=== PATIENT | female | born 1965 | race Caucasian/White ===

== ENCOUNTER → 2017-05-04 | Outpatient (CLI) | payer OTHER ==
--- NOTE | 2017-05-05 13:25 | WOMENS IMAGING REPORT ---
EXAM DESCRIPTION: 3D DX MAMMO BILAT; U/S BREAST UNILAT LIMITED COMPLETED DATE/TIME: 05/04/2017 11:54 am; 05/04/2017 1:38 pm REASON FOR STUDY: RT BREAST LUMP; N63; LUMP;N63 N63 UNSPECIFIED LUMP IN BREAST COMPARISON: Multiple mammograms since 2010 Left breast ultrasound 08/17/2016 TECHNIQUE: Standard craniocaudal, 90 degree mediolateral views of each breast recorded using digital acquisition and breast tomosynthesis. Bilateral breast ultrasound was also performed. LIMITATIONS: None. FINDINGS: RIGHT BREAST MASSES: Low-density well-circumscribed 3 mm nodule right breast 12 o'clock position 6 cm from the nip ple. This was subsequently shown to be a small breast parenchymal cyst. CALCIFICATIONS: No new or suspicious calcifications. ARCHITECTURAL DISTORTION: None. DEVELOPING DENSITY: None. ASYMMETRY: None noted. OTHER: No other significant findings. LEFT BREAST MASSES: No suspicious masses. CALCIFICATIONS: No new or suspicious calcifications. ARCHITECTURAL DISTORTION: None. DEVELOPING DENSITY: None. ASYMMETRY: None noted. OTHER: No other significant finding. Read with the assistance of CAD: .[facility] - R2 Cenova Version 1.3 .[facility] Imaging - R2 Cenova Version 1.3 .[facility] - R2 Cenova Version 2.4 .[facility] - R2 Cenova Version 2.4 .[facility] - R2 Senior Escrow Officer Version 9.2 Right breast ultrasound: Right breast ultrasound was performed. At the 12 o'clock position right breast, 6 cm from the nipple a simple cyst is present 3 mm in diameter. This requires no further followup. Patient indicates a palpable abnormality in the far lateral right breast/right lateral chest wall. U ltrasound of this area demonstrates a 3 x 1 cm well-circumscribed fatty nodule likely a lipoma. This similar compared to ultrasound 08/17/2016. IMPRESSION: No mammograms/tomosynthesis or ultrasound evidence for malignancy right breast. No mammographic/tomosynthesis evidence of malignancy left breast. BREAST DENSITY: a. The breasts are almost entirely fatty. BIRAD: 2 Benign findings. RECOMMENDATION: RECOMMENDED FOLLOW UP: Please continue yearly bilateral tomosynthesis screening in A ugust 2018. SPECIFIC INTERVENTION/IMAGING/CONSULTATION RECOMMENDED:No additional intervention/ imaging/consultati on needed at this time. COMMUNICATION:Patient notified by letter COMMENT: The patient has been notified of the results by letter per MQSA requirements. Additional no tification policies are in place for contacting patient with suspicious or incomplete findings. Quality ID #[id number]: The [employer] recommends an annual screening mammogram for women aged 40 years or over. This facility utilizes a reminder system to ensure that all patients receive reminder letters, and/or direct phone calls for appointments. This includes reminders for routine scr eening mammograms, diagnostic mammograms, or other Breast Imaging Interventions when appropriate. Th is patient will be placed in the appropriate reminder system. The [employer] (ACR) has developed recommendations for screening MRI of the breast s in certain patient populations, to be used in conjunction with mammography. Breast MRI surveillanc e may be appropriate for women with more than 20% lifetime risk of developing breast cancer as deter mined by genetic testing, significant family history of the disease, or history of mantle radiation f or Hodgkins Disease. ACR Practice Guidelines 2008. DBT Technology DBT is a type of tomographic mammography. With conventional mammography, overlapping breast tissue ma y make lesions difficult to detect, even with good compression. DBT uses an x-ray tube that rotates a round the breast, taking images at different angles. These images are then combined to create thin sl ices of the breast that the radiologist can view as a 3D reconstruction. The [employer] unit can perform full-field digital mammograms (2D imaging); or DBT (3D imaging); or both, in a combination mode that quickly performs both the mammogram and the tomosynthesis scan while the breast is still compressed. PQRS 6045F: Fluoroscopic imaging is not utilized for breast tomosynthesis. TECHNICAL DOCUMENTATION: FINDING NUMBER: (1) ASSESSMENT: (1) JOB ID: [id number] [employer]- All Rights Reserved
--- NOTE | 2017-05-05 13:25 | WOMENS IMAGING REPORT ---
EXAM DESCRIPTION: 3D DX MAMMO BILAT; U/S BREAST UNILAT LIMITED COMPLETED DATE/TIME: 05/04/2017 11:54 am; 05/04/2017 1:38 pm REASON FOR STUDY: RT BREAST LUMP; N63; LUMP;N63 N63 UNSPECIFIED LUMP IN BREAST COMPARISON: Multiple mammograms since 2010 Left breast ultrasound 08/17/2016 TECHNIQUE: Standard craniocaudal, 90 degree mediolateral views of each breast recorded using digital acquisition and breast tomosynthesis. Bilateral breast ultrasound was also performed. LIMITATIONS: None. FINDINGS: RIGHT BREAST MASSES: Low-density well-circumscribed 3 mm nodule right breast 12 o'clock position 6 cm from the nip ple. This was subsequently shown to be a small breast parenchymal cyst. CALCIFICATIONS: No new or suspicious calcifications. ARCHITECTURAL DISTORTION: None. DEVELOPING DENSITY: None. ASYMMETRY: None noted. OTHER: No other significant findings. LEFT BREAST MASSES: No suspicious masses. CALCIFICATIONS: No new or suspicious calcifications. ARCHITECTURAL DISTORTION: None. DEVELOPING DENSITY: None. ASYMMETRY: None noted. OTHER: No other significant finding. Read with the assistance of CAD: .[facility] - R2 Cenova Version 1.3 .[facility] - R2 Cenova Version 1.3 .[facility] Imaging - R2 Cenova Version 2.4 .[facility] - R2 Cenova Version 2.4 .[facility] - R2 Career Center Advisor Version 9.2 Right breast ultrasound: Right breast ultrasound was performed. At the 12 o'clock position right breast, 6 cm from the nipple a simple cyst is present 3 mm in diameter. This requires no further followup. Patient indicates a palpable abnormality in the far lateral right breast/right lateral chest wall. U ltrasound of this area demonstrates a 3 x 1 cm well-circumscribed fatty nodule likely a lipoma. This similar compared to ultrasound 08/17/2016. IMPRESSION: No mammograms/tomosynthesis or ultrasound evidence for malignancy right breast. No mammographic/tomosynthesis evidence of malignancy left breast. BREAST DENSITY: a. The breasts are almost entirely fatty. BIRAD: 2 Benign findings. RECOMMENDATION: RECOMMENDED FOLLOW UP: Please continue yearly bilateral tomosynthesis screening in A ugust 2018. SPECIFIC INTERVENTION/IMAGING/CONSULTATION RECOMMENDED:No additional intervention/ imaging/consultati on needed at this time. COMMUNICATION:Patient notified by letter COMMENT: The patient has been notified of the results by letter per MQSA requirements. Additional no tification policies are in place for contacting patient with suspicious or incomplete findings. Quality ID #[id number]: The [employer] recommends an annual screening mammogram for women aged 40 years or over. This facility utilizes a reminder system to ensure that all patients receive reminder letters, and/or direct phone calls for appointments. This includes reminders for routine scr eening mammograms, diagnostic mammograms, or other Breast Imaging Interventions when appropriate. Th is patient will be placed in the appropriate reminder system. The [employer] (ACR) has developed recommendations for screening MRI of the breast s in certain patient populations, to be used in conjunction with mammography. Breast MRI surveillanc e may be appropriate for women with more than 20% lifetime risk of developing breast cancer as deter mined by genetic testing, significant family history of the disease, or history of mantle radiation f or Hodgkins Disease. ACR Practice Guidelines 2008. DBT Technology DBT is a type of tomographic mammography. With conventional mammography, overlapping breast tissue ma y make lesions difficult to detect, even with good compression. DBT uses an x-ray tube that rotates a round the breast, taking images at different angles. These images are then combined to create thin sl ices of the breast that the radiologist can view as a 3D reconstruction. The [employer] unit can perform full-field digital mammograms (2D imaging); or DBT (3D imaging); or both, in a combination mode that quickly performs both the mammogram and the tomosynthesis scan while the breast is still compressed. PQRS 6045F: Fluoroscopic imaging is not utilized for breast tomosynthesis. TECHNICAL DOCUMENTATION: FINDING NUMBER: (1) ASSESSMENT: (1) JOB ID: [id number] [employer]- All Rights Reserved
== END ==
LOC: WI 10:56
PROVIDERS: ATTEND Physician Assistant
DX: N63 Unspecified lump in breast (principal); Z12.31 Encounter for screening mammogram for malignant neoplasm of breast
CPT/HCPCS: 76642; G0279; G0204; 77062; 77066

== ENCOUNTER → 2017-07-06 | Outpatient (CLI) | payer OTHER | LOC: RAD 14:53 | PROVIDERS: ATTEND Physician Assistant | DX: N64.59 Other signs and symptoms in breast (principal) ==

== ENCOUNTER → 2018-02-22 | Outpatient (CLI) | payer OTHER ==
[2018-02-22 15:31] LABS: ANION GAP 13 (5-19); BLOOD UREA NITROGEN 14 mg/dL (7-20); CALCIUM 9.8 mg/dL (8.4-10.2); CARBON DIOXIDE 25 mmol/L (22-30); CHLORIDE 104 mmol/L (98-107); GLUCOSE 94 mg/dL (75-110); POTASSIUM 3.4 mmol/L (3.6-5.0); SODIUM 141.8 mmol/L (137-145)
== END ==
LOC: OD 13:48
PROVIDERS: ATTEND Internal Medicine Cardiovascular Disease
DX: I10 Essential (primary) hypertension (principal); E87.6 Hypokalemia
CPT/HCPCS: 36415; 80048; 83735

== ENCOUNTER → 2018-02-27 | Outpatient (CLI) | payer OTHER ==
[2018-02-27 11:01] LABS: ALANINE AMINOTRANSFERASE 32 U/L (9-52); ALBUMIN 3.8 g/dL (3.5-5.0); ALKALINE PHOSPHATASE 54 U/L (38-126); ANION GAP 12 (5-19); ASPARTATE AMINO TRANSFERASE 23 U/L (14-36); BILIRUBIN,DIRECT 0.3 mg/dL (0.0-0.4); BILIRUBIN,TOTAL 0.4 mg/dL (0.2-1.3); BLOOD UREA NITROGEN 16 mg/dL (7-20); CALCIUM 9.6 mg/dL (8.4-10.2); CARBON DIOXIDE 26 mmol/L (22-30); CHLORIDE 107 mmol/L (98-107); GLUCOSE 93 mg/dL (75-110); POTASSIUM 4.1 mmol/L (3.6-5.0); SODIUM 145.1 mmol/L (137-145); TOTAL PROTEIN 6.6 g/dL (6.3-8.2); TRIGLYCERIDES 154 mg/dL (<150)
[2018-02-27 11:11] LABS: DIRECT LDL 164 mg/dL (<100)
[2018-02-27 11:15] LABS: VLDL CHOLESTEROL 30.8 mg/dL (10-31)
== END ==
LOC: OD 09:22
PROVIDERS: ATTEND Internal Medicine Cardiovascular Disease
DX: E55.9 Vitamin D deficiency, unspecified (principal); E66.09 Other obesity due to excess calories; I50.22 Chronic systolic (congestive) heart failure; R00.2 Palpitations
CPT/HCPCS: 36415; 80048; 80061; 80076; 82306; 83036; 83880; 84443; 86141

== ENCOUNTER → 2018-04-02 | Outpatient (CLI) | payer OTHER ==
[2018-04-02 13:22] LABS: ANION GAP 8 (5-19); BLOOD UREA NITROGEN 15 mg/dL (7-20); CALCIUM 9.3 mg/dL (8.4-10.2); CARBON DIOXIDE 30 mmol/L (22-30); CHLORIDE 105 mmol/L (98-107); CREATINE KINASE 87 U/L (30-135); GLUCOSE 86 mg/dL (75-110); POTASSIUM 3.9 mmol/L (3.6-5.0); SODIUM 143.4 mmol/L (137-145)
== END ==
LOC: OD 11:46
PROVIDERS: ATTEND Internal Medicine Cardiovascular Disease
DX: E78.2 Mixed hyperlipidemia (principal); E83.42 Hypomagnesemia; E87.6 Hypokalemia; E66.09 Other obesity due to excess calories; R00.2 Palpitations; R25.2 Cramp and spasm
CPT/HCPCS: 36415; 80048; 82550; 83525; 83735

== ENCOUNTER → 2018-08-04 | Outpatient (CLI) | payer OTHER ==
[2018-08-04 12:02] LABS: ALANINE AMINOTRANSFERASE 17 U/L (9-52); ALBUMIN 3.7 g/dL (3.5-5.0); ALKALINE PHOSPHATASE 58 U/L (38-126); ANION GAP 8 (5-19); ASPARTATE AMINO TRANSFERASE 14 U/L (14-36); BILIRUBIN,DIRECT 0.2 mg/dL (0.0-0.4); BILIRUBIN,TOTAL 0.7 mg/dL (0.2-1.3); BLOOD UREA NITROGEN 18 mg/dL (7-20); CALCIUM 9.2 mg/dL (8.4-10.2); CARBON DIOXIDE 30 mmol/L (22-30); CHLORIDE 104 mmol/L (98-107); CHOLESTEROL 245.11 mg/dL (0-200); CREATINE KINASE 83 U/L (30-135); GLUCOSE 91 mg/dL (75-110); POTASSIUM 4.3 mmol/L (3.6-5.0); SODIUM 141.8 mmol/L (137-145); TOTAL PROTEIN 6.4 g/dL (6.3-8.2); TRIGLYCERIDES 108 mg/dL (<150)
[2018-08-04 12:13] LABS: DIRECT LDL 171 mg/dL (<100)
== END ==
LOC: OD 10:20
PROVIDERS: ATTEND Internal Medicine Cardiovascular Disease
DX: E83.42 Hypomagnesemia (principal); E78.2 Mixed hyperlipidemia; R00.2 Palpitations; E87.6 Hypokalemia; Z79.899 Other long term (current) drug therapy
CPT/HCPCS: 36415; 80048; 80061; 80076; 82306; 82550; 83735; 84443

== ENCOUNTER → 2018-08-16 | Outpatient (CLI) | payer OTHER ==
--- NOTE | 2018-08-16 14:03 | WOMENS IMAGING REPORT ---
EXAM DESCRIPTION: BILAT DIAGNOSTIC MAMMO W/CAD; U/S BREAST UNILAT LIMITED COMPLETED DATE/TIME: 08/16/2018 12:50 pm; 08/16/2018 1:33 pm REASON FOR STUDY: R92.8 INCONCLUSIVE ON DX IMAGING; RT BREAST R92.8 R92.8 OTH ABN AND INCONCLUSIVE FINDINGS ON DX IMAGING OF JUAN COMPARISON: Multiple since 2010 TECHNIQUE: Standard craniocaudal and mediolateral oblique views of each breast recorded using digita l acquisition. Additional right breast 90 mediolateral view and exaggerated craniocaudad view. Right breast ultrasound was also performed LIMITATIONS: None. FINDINGS: RIGHT BREAST MASSES: No suspicious masses. CALCIFICATIONS: No new or suspicious calcifications. ARCHITECTURAL DISTORTION: None. DEVELOPING DENSITY: None. ASYMMETRY: None noted. OTHER: No other significant findings. LEFT BREAST MASSES: No suspicious masses. CALCIFICATIONS: No new or suspicious calcifications. ARCHITECTURAL DISTORTION: None. DEVELOPING DENSITY: None. ASYMMETRY: None noted. OTHER: No other significant finding. Read with the assistance of CAD: .[facility] - R2 Cenova Version 1.3 .[facility] Imaging - R2 Cenova Version 1.3 .[facility] Imaging - R2 Cenova Version 2.4 .[facility] - R2 Cenova Version 2.4 .[facility] - R2 Dairy Management Specialist Version 9.2 Right breast ultrasound: Patient indicates a palpable abnormality right breast far laterally along the chest wall at about the 9 o'clock position. In this area, a 3.4 x 3 x 1.5 cm lipoma is present in the right lateral chest w all (was 3 x 3 x 1.3 cm in 2017 and 2016). No worrisome sonographic features. IMPRESSION: No mammographic or sonographic evidence for malignancy. Lipoma right lateral chest wall shows minimal growth since 2017 and 2016 BREAST DENSITY: b. There are scattered areas of fibroglandular density. BIRAD: 2 Benign findings. RECOMMENDATION: RECOMMENDED FOLLOW UP: Please continue yearly bilateral screening mammography. Clin ical follow-up for lipoma right lateral chest wall SPECIFIC INTERVENTION/IMAGING/CONSULTATION RECOMMENDED:No additional intervention/ imaging/consultati on needed at this time. COMMUNICATION:Patient notified by letter COMMENT: The patient has been notified of the results by letter per MQSA requirements. Additional no tification policies are in place for contacting patient with suspicious or incomplete findings. Quality ID #[id number]: The [employer] recommends an annual screening mammogram for women aged 40 years or over. This facility utilizes a reminder system to ensure that all patients receive reminder letters, and/or direct phone calls for appointments. This includes reminders for routine scr eening mammograms, diagnostic mammograms, or other Breast Imaging Interventions when appropriate. Th is patient will be placed in the appropriate reminder system. The [employer] (ACR) has developed recommendations for screening MRI of the breast s in certain patient populations, to be used in conjunction with mammography. Breast MRI surveillanc e may be appropriate for women with more than 20% lifetime risk of developing breast cancer as deter mined by genetic testing, significant family history of the disease, or history of mantle radiation f or Hodgkins Disease. ACR Practice Guidelines 2008. TECHNICAL DOCUMENTATION: FINDING NUMBER: (1) ASSESSMENT: (1) JOB ID: [id number] [employer]- All Rights Reserved Reading location - IP/workstation name: [email or web address]
--- NOTE | 2018-08-16 14:03 | WOMENS IMAGING REPORT ---
EXAM DESCRIPTION: BILAT DIAGNOSTIC MAMMO W/CAD; U/S BREAST UNILAT LIMITED COMPLETED DATE/TIME: 08/16/2018 12:50 pm; 08/16/2018 1:33 pm REASON FOR STUDY: R92.8 INCONCLUSIVE ON DX IMAGING; RT BREAST R92.8 R92.8 OTH ABN AND INCONCLUSIVE FINDINGS ON DX IMAGING OF JUAN COMPARISON: Multiple since 2010 TECHNIQUE: Standard craniocaudal and mediolateral oblique views of each breast recorded using digita l acquisition. Additional right breast 90 mediolateral view and exaggerated craniocaudad view. Right breast ultrasound was also performed LIMITATIONS: None. FINDINGS: RIGHT BREAST MASSES: No suspicious masses. CALCIFICATIONS: No new or suspicious calcifications. ARCHITECTURAL DISTORTION: None. DEVELOPING DENSITY: None. ASYMMETRY: None noted. OTHER: No other significant findings. LEFT BREAST MASSES: No suspicious masses. CALCIFICATIONS: No new or suspicious calcifications. ARCHITECTURAL DISTORTION: None. DEVELOPING DENSITY: None. ASYMMETRY: None noted. OTHER: No other significant finding. Read with the assistance of CAD: .[facility] - R2 Cenova Version 1.3 .[facility] Imaging - R2 Cenova Version 1.3 .[facility] Imaging - R2 Cenova Version 2.4 .[facility] [place] R2 Cenova Version 2.4 .[facility] - R2 Estate Conservator Version 9.2 Right breast ultrasound: Patient indicates a palpable abnormality right breast far laterally along the chest wall at about the 9 o'clock position. In this area, a 3.4 x 3 x 1.5 cm lipoma is present in the right lateral chest w all (was 3 x 3 x 1.3 cm in 2017 and 2016). No worrisome sonographic features. IMPRESSION: No mammographic or sonographic evidence for malignancy. Lipoma right lateral chest wall shows minimal growth since 2017 and 2016 BREAST DENSITY: b. There are scattered areas of fibroglandular density. BIRAD: 2 Benign findings. RECOMMENDATION: RECOMMENDED FOLLOW UP: Please continue yearly bilateral screening mammography. Clin ical follow-up for lipoma right lateral chest wall SPECIFIC INTERVENTION/IMAGING/CONSULTATION RECOMMENDED:No additional intervention/ imaging/consultati on needed at this time. COMMUNICATION:Patient notified by letter COMMENT: The patient has been notified of the results by letter per MQSA requirements. Additional no tification policies are in place for contacting patient with suspicious or incomplete findings. Quality ID #225: The [employer] recommends an annual screening mammogram for women aged 40 years or over. This facility utilizes a reminder system to ensure that all patients receive reminder letters, and/or direct phone calls for appointments. This includes reminders for routine scr eening mammograms, diagnostic mammograms, or other Breast Imaging Interventions when appropriate. Th is patient will be placed in the appropriate reminder system. The [employer] (ACR) has developed recommendations for screening MRI of the breast s in certain patient populations, to be used in conjunction with mammography. Breast MRI surveillanc e may be appropriate for women with more than 20% lifetime risk of developing breast cancer as deter mined by genetic testing, significant family history of the disease, or history of mantle radiation f or Hodgkins Disease. ACR Practice Guidelines 2008. TECHNICAL DOCUMENTATION: FINDING NUMBER: (1) ASSESSMENT: (1) JOB ID: [id number] [employer]- All Rights Reserved Reading location - IP/workstation name: [email or web address]
== END ==
LOC: WI 12:22
PROVIDERS: ATTEND Family Medicine
DX: R92.8 Other abnormal and inconclusive findings on diagnostic imaging of breast (principal)
CPT/HCPCS: 76642; 77066

== ENCOUNTER → 2018-09-01 | Outpatient (CLI) | payer OTHER ==
[2018-09-01 12:31] LABS: ALANINE AMINOTRANSFERASE 13 U/L (9-52); ALBUMIN 3.8 g/dL (3.5-5.0); ALKALINE PHOSPHATASE 62 U/L (38-126); ANION GAP 12 (5-19); ASPARTATE AMINO TRANSFERASE 14 U/L (14-36); BILIRUBIN,DIRECT 0.2 mg/dL (0.0-0.4); BILIRUBIN,TOTAL 0.6 mg/dL (0.2-1.3); BLOOD UREA NITROGEN 20 mg/dL (7-20); CALCIUM 9.4 mg/dL (8.4-10.2); CARBON DIOXIDE 25 mmol/L (22-30); CHLORIDE 105 mmol/L (98-107); CHOLESTEROL 259.27 mg/dL (0-200); CREATINE KINASE 69 U/L (30-135); GLUCOSE 93 mg/dL (75-110); POTASSIUM 4.1 mmol/L (3.6-5.0); SODIUM 141.7 mmol/L (137-145); TOTAL PROTEIN 6.6 g/dL (6.3-8.2); TRIGLYCERIDES 102 mg/dL (<150)
[2018-09-01 12:42] LABS: DIRECT LDL 165 mg/dL (<100)
[2018-09-04 15:07] LABS: URIC ACID 5.3 mg/dL (2.5-7.5)
== END ==
LOC: OD 11:49
PROVIDERS: ATTEND Internal Medicine Cardiovascular Disease
DX: I10 Essential (primary) hypertension (principal); E78.2 Mixed hyperlipidemia; E66.09 Other obesity due to excess calories; I51.9 Heart disease, unspecified; Z79.899 Other long term (current) drug therapy
CPT/HCPCS: 36415; 80048; 80061; 80076; 82306; 82550; 83735; 84443; 84550

== ENCOUNTER → 2019-03-09 | Outpatient (CLI) | payer OTHER ==
[2019-03-09 12:33] LABS: ALANINE AMINOTRANSFERASE 19 U/L (9-52); ALBUMIN 3.8 g/dL (3.5-5.0); ALKALINE PHOSPHATASE 50 U/L (38-126); ANION GAP 8 (5-19); ASPARTATE AMINO TRANSFERASE 15 U/L (14-36); BILIRUBIN,DIRECT 0.4 mg/dL (0.0-0.4); BILIRUBIN,TOTAL 0.6 mg/dL (0.2-1.3); BLOOD UREA NITROGEN 20 mg/dL (7-20); CALCIUM 9.5 mg/dL (8.4-10.2); CARBON DIOXIDE 29 mmol/L (22-30); CHLORIDE 103 mmol/L (98-107); CHOLESTEROL 241.13 mg/dL (0-200); GLUCOSE 98 mg/dL (75-110); POTASSIUM 3.9 mmol/L (3.6-5.0); SODIUM 139.5 mmol/L (137-145); TOTAL PROTEIN 6.3 g/dL (6.3-8.2); TRIGLYCERIDES 94 mg/dL (<150)
[2019-03-09 12:43] LABS: DIRECT LDL 149 mg/dL (<100)
== END ==
LOC: OD 09:21
PROVIDERS: ATTEND Internal Medicine Cardiovascular Disease
DX: E78.2 Mixed hyperlipidemia (principal); I10 Essential (primary) hypertension; R00.2 Palpitations; E83.42 Hypomagnesemia; Z79.899 Other long term (current) drug therapy
CPT/HCPCS: 36415; 80048; 80061; 80076; 83735

== ENCOUNTER 2019-05-11 00:17 | Inpatient (IN) | payer OTHER ==
[2019-05-11] MEDS ORDERED: DILTIAZEM HCL INJ 25 MG/5 ML VIAL IV ONE ×2 (00:39→02:56)
[2019-05-11] MEDS ORDERED: NORMAL SALINE 1000 ML 1,000 ML IV ONE ×2 (00:40→06:33)
[2019-05-11] MEDS ORDERED: ASPIRIN 81 MG TABLET, CHEWABLE PO ONE (00:40)
[2019-05-11] MEDS ORDERED: DILTIAZEM HCL INJ 25 MG/5 ML VIAL ONE (00:41)
--- NOTE | 2019-05-11 00:42 | ER Document Report ---
ED General - General Chief Complaint: Arrhythmia Stated Complaint: HEART RACING Time Seen by Provider: 05/11/19 00:32 Mode of Arrival: Ambulatory Information source: Patient, Relative, [facility] Records Notes: 54-year-old female with hypertension, systolic congestive heart failure (EF 59%), hyperlipidemia presents with complaint of chest pain and palpitations. Patient states that approximately 2 hours prior to arrival she began feeling palpitations. She states she had been swimming in her pool and was just getting out when it started. Her chest pain is described as a tightness without radia tion. She does have mild associated dyspnea. She denies any prior similar symptoms. Patient denies any recent illness, cough, sore throat, nausea, vomiting, abdominal pain, back pain, changes in medication, recent hospitalizations. Patient sees Dr. Sky hardboard grinder. She underwent a stress test in March 2018 which showed mild abnormality. Recommendations at that time is if chest pain persisted she should undergo cardiac catheterization but she reports that her chest pain has been well controlled. TRAVEL OUTSIDE OF THE [place] IN LAST 30 DAYS: No - HPI Onset: Just prior to arrival Onset/Duration: Sudden Quality of pain: Pressure Severity: Mild Associated symptoms: Chest pain, Shortness of breath. denies: Nonproductive cough, Productive cough, Headache, Leg swelling, Nausea, Sweating Exacerbated by: Denies Relieved by: Denies Similar symptoms previously: No Recently seen / treated by doctor: No - Related Data Allergies/Adverse Reactions: Sulfa (Sulfonamide Antibiotics) Allergy (Verified 09/01/15 10:51) Past Medical History - General Information source: Patient - Social History Smoking Status: Never Smoker Frequency of alcohol use: None Drug Abuse: None Lives with: Spouse/Significant other Family History: Reviewed & Not Pertinent, CAD Patient has suicidal ideation: No Patient has homicidal ideation: No - Past Medical History Cardiac Medical History: Reports: Hx Hypertension Psychiatric Medical History: Reports: Hx Anxiety, Hx Depression Past Surgical History: Reports: Hx Cholecystectomy, Hx Hysterectomy, Hx Orthopedic Surgery - back , wrist Review of Systems - Review of Systems Notes: REVIEW OF SYSTEMS: CONSTITUTIONAL : Denies fever, chills, or sweats. Denies recent illness. Denies weight loss, recent hospitalizations. EENT: Denies visual changes, eye pain. Denies sore throat, oral lesions, difficulty swallowing. CARDIOVASCULAR: + chest pain. + palpitations. Denies lower extremity edema. RESPIRATORY: Denies cough. + shortness of breath, denies wheezing. GASTROINTESTINAL: Denies abdominal pain or distention. Denies nausea, vomiting, or diarrhea. Denies blood in vomitus, stools, or per rectum. Denies black, tarry stools. Denies constipation. GENITOURINARY: Denies difficulty urinating, painful urination, frequency, blood in urine, or vaginal discharge. MUSCULOSKELETAL: Denies back or neck pain or stiffness. Denies joint pain or swelling. SKIN: Denies rash, lesions or sores. HEMATOLOGIC : Denies easy bruising or bleeding. LYMPHATIC: Denies swollen glands. NEUROLOGICAL: Denies confusion or altered mental status. Denies loss of consciousness. Denies dizziness or lightheadedness. Denies headache. Denies weakness or paralysis. Denies problems difficulty with ambulation, slurred speech. Denies sensory loss, numbness, or tingling. Denies seizures. PSYCHIATRIC: Denies anxiety or stress. Denies depression, suicidal ideation, or homicidal ideation. Denies visual or auditory hallucinations. Physical Exam - Vital signs Vitals: Pulse 178 H 05/11/19 00:18 - Notes Notes: PHYSICAL EXAMINATION: GENERAL: Well-appearing, well-nourished and in no acute distress. HEAD: Atraumatic, normocephalic. EYES: Pupils equal round and reactive to light, extraocular movements intact, conjunctiva are normal. ENT: Nares patent, oropharynx clear without exudates. Moist mucous membranes. NECK: Normal range of motion, supple without lymphadenopathy LUNGS: Breath sounds clear to auscultation bilaterally and equal. No wheezes rales or rhonchi. HEART: Tachycardic, irregular rhythm, no murmurs. Pulses equal throughout. ABDOMEN: Soft, nontender, nondistended abdomen. No guarding, no rebound. No masses appreciated. Female : deferred Musculoskeletal: Normal range of motion, no pitting or edema. No cyanosis. NEUROLOGICAL: Cranial nerves grossly intact. Normal speech, normal gait. Normal sensory, motor exams PSYCH: Normal mood, normal affect. SKIN: Warm, Dry, normal turgor, no rashes or lesions noted. Course - Re-evaluation Re-evalutation: Temp Pulse Resp BP Pulse Ox 169 H 16 139/87 H 97 05/11/19 00:35 05/11/19 03:51 05/11/19 03:51 05/11/19 03:51 Laboratory 05/11/19 05/11/19 05/11/19 00:36 00:36 00:36 WBC 6.9 RBC 4.95 Hgb 13.8 Hct 40.9 MCV 83 MCH 27.9 MCHC 33.8 RDW 14.1 H Plt Count 191 Seg Neutrophils % 56.9 Lymphocytes % 30.9 Monocytes % 6.4 Eosinophils % 4.7 Basophils % 1.1 Absolute Neutrophils 3.9 Absolute Lymphocytes 2.1 Absolute Monocytes 0.4 Absolute Eosinophils 0.3 Absolute Basophils 0.1 Sodium 138.6 Potassium 3.9 Chloride 104 Carbon Dioxide 27 Anion Gap 8 BUN 17 Creatinine 0.80 Est GFR ( Amer) > 60 Est GFR (Non-Af Amer) > 60 Glucose 92 Calcium 9.1 Phosphorus 3.7 Magnesium 2.1 Total Bilirubin 0.7 Direct Bilirubin 0.3 Neonat Total Bilirubin Not Reportable Neonat Direct Bilirubin Not Reportable Neonat Indirect Bili Not Reportable AST 19 ALT 13 Alkaline Phosphatase 63 Creatine Kinase 133 CK-MB (CK-2) 0.66 Troponin I < 0.012 NT-Pro-B Natriuret Pep Total Protein 6.5 Albumin 3.9 TSH Free T4 Free T3 pg/mL 05/11/19 05/11/19 00:36 00:36 WBC RBC Hgb Hct MCV MCH MCHC RDW Plt Count Seg Neutrophils % Lymphocytes % Monocytes % Eosinophils % Basophils % Absolute Neutrophils Absolute Lymphocytes Absolute Monocytes Absolute Eosinophils Absolute Basophils Sodium Potassium Chloride Carbon Dioxide Anion Gap BUN Creatinine Est GFR ( Amer) Est GFR (Non-Af Amer) Glucose Calcium Phosphorus Magnesium Total Bilirubin Direct Bilirubin Neonat Total Bilirubin Neonat Direct Bilirubin Neonat Indirect Bili AST ALT Alkaline Phosphatase Creatine Kinase CK-MB (CK-2) Troponin I NT-Pro-B Natriuret Pep 93 Total Protein Albumin TSH 3.94 Free T4 0.94 Free T3 pg/mL 4.53 Chest X-Ray 05/11/19 00:40 IMPRESSION: No evidence of acute intrathoracic disease. Temp Pulse Resp BP Pulse Ox 98.2 F 169 H 16 139/87 H 97 05/11/19 03:15 05/11/19 00:35 05/11/19 03:51 05/11/19 03:51 05/11/19 03:51 05/11/19 00:56 54-year-old female with hypertension, congestive heart failure presents via private vehicle from home after experiencing palpitations that occurred just prior to arrival while she was swimming. Patient denies prior similar symptoms. Upon arrival patient's heart rate is 178. Patient was placed on air sampling and monitoring and an EKG was obtained which showed the patient to be in atrial fibrillation with RVR. Patient has no previous history of atrial fibrillation. She did receive a Cardizem bolus of 20 mg and a Cardizem infusion has been initiated. 05/11/19 03:56 Initial Cardizem bolus did improve the patient's heart rate but once the infusion was initiated patient became hypotensive and this was discontinued. Patient remained tachycardic in the 150s so digoxin was administered. We saw no improvement of the patient's heart rate after the digoxin administration so we attempted to repeat another Cardizem bolus of 10 mg which again did not improve her heart rate. I did speak to the patient's hardboard grinder who will review the patient's records and called me back. 05/11/19 05:19 I did speak to Dr. Sky again who recommends an amiodarone drip. He also recommends that if patient becomes hypotensive that she should undergo synchronized cardioversion Amnio drip was started per protocol. Patient will be admitted. Consult placed for cardiology. Will call hospitalist for admission. 05/11/19 05:45 CBC is without leukocytosis or anemia. CMP is without electrolyte abnormalities. Cardiac enzymes within normal limits. Chest x-ray shows no evidence of acute intrathoracic disease. 05/11/19 05:47 Patient's tachycardia was persistent and 168. Patient started complaining of worsening chest pain and had an episode of hypotension. Synchronized cardioversion was performed using Versed and fentanyl. After 1 shock patient converted to normal sinus rhythm with a heart rate of 85. Dr. Craig she has agreed to admit the patient to the [facility]. 05/11/19 06:53 05/11/19 06:57 - Vital Signs Vital signs: Temp Pulse Resp BP Pulse Ox 99.0 F 69 18 112/50 L 99 05/11/19 23:36 05/12/19 00:00 05/11/19 23:36 05/12/19 00:00 05/11/19 23:36 - Laboratory Result Diagrams: 05/11/19 00:36 08/10/19 00:36 Laboratory results interpreted by me: 05/11/19 00:36 RDW 14.1 H - Diagnostic Test Radiology reviewed: Image reviewed, Reports reviewed - EKG Interpretation by Me Rate: Tachycardia Rhythm: A.Fib When compared to previous EKG there are: Changes noted, Other - Repeat EKG shows normal sinus rhythm at a rate of [address] elevation noted. Procedures - Conscious Sedation Conscious sedation Time started: 06:56 Consent obtained: Yes Indication: Synchronized cardioversion Prior complications: Procedural sedation Pt with a mild systemic disease.: P2. - ASA Classification. Airway Evaluation: Normal anatomy Used during procedure: Suction available, IV access obtained, Pulse ox on pt., cafeteria monitor on pt. Medications administered: Versed, Fentanyl Reversal agents: None I personally performed/intraservice time: Sedation, Procedure, 31-45 min Complications: No - Additional Procedures Cardioversion/Defib Time performed: 06:56 - Unstable A. fib with RVR Additional Procedures: Cardioversion/defib Critical Care Note - Critical Care Note Total time excluding time spent on procedures (mins): 60 - Minutes of critical care time spent in direct contact evaluating and reevaluating the patient, treating symptoms, reviewing labs and studies and speaking with family and consultants excluding any procedures Discharge - Discharge Clinical Impression: Atrial fibrillation with RVR, New onset atrial fibrillation Chest pain Qualifiers: Chest pain type: chest pain due to myocardial ischemia Ischemic chest pain type: stable angina pectoris Qualified Code(s): I20.8 - Other forms of angina p ectoris Condition: Stable Disposition: ADMITTED INPATIENT Admitting Provider: Rafa (Hospitalist) Unit Admitted: [facility]
[2019-05-11 00:48] LABS: ABSOLUTE BASOPHILS # (AUTO) 0.1 10^3/uL (0.0-0.2); ABSOLUTE EOSINOPHILS # (AUTO) 0.3 10^3/uL (0.0-0.6); ABSOLUTE LYMPHOCYTES (AUTO) 2.1 10^3/uL (0.5-4.7); ABSOLUTE MONOCYTES (AUTO) 0.4 10^3/uL (0.1-1.4); ABSOLUTE NEUT (AUTO) 3.9 10^3/uL (1.7-8.2); BASOPHILS % (AUTO) 1.1 % (0-2); EOSINOPHILS % (AUTO) 4.7 % (0-6); HEMATOCRIT 40.9 % (36.0-47.0); HEMOGLOBIN 13.8 g/dL (12.0-15.5); LYMPHOCYTES % (AUTO) 30.9 % (13-45); MEAN CORPUSCULAR HEMOGLOBIN 27.9 pg (27.0-33.4); MEAN CORPUSCULAR HGB CONC 33.8 g/dL (32.0-36.0); MEAN CORPUSCULAR VOLUME 83 fl (80-97); MONOCYTES % (AUTO) 6.4 % (3-13); PLATELET COUNT 191 10^3/uL (150-450); RED BLOOD COUNT 4.95 10^6/uL (3.72-5.28); RED CELL DISTRIBUTION WIDTH 14.1 % (11.5-14.0); SEGMENTED NEUTROPHILS % (AUTO) 56.9 % (42-78); TOTAL CELLS COUNTED % (AUTO) 100 %; WHITE BLOOD COUNT 6.9 10^3/uL (4.0-10.5)
[2019-05-11] MEDS ORDERED: DILTIAZEM HCL/D5W 125 MG/125 ML RTUINJ IV ONE (00:49)
[2019-05-11] MEDS ORDERED: DILTIAZEM HCL/D5W 125 MG/125 ML RTUINJ IV PRN (00:51)
[2019-05-11] MEDS ORDERED: DIGOXIN 0.25 MG TABLET PO ONE (01:15)
[2019-05-11 01:16] LABS: ALBUMIN 3.9 g/dL (3.5-5.0); ALKALINE PHOSPHATASE 63 U/L (38-126); ANION GAP 8 (5-19); ASPARTATE AMINO TRANSFERASE 19 U/L (14-36); BILIRUBIN,DIRECT 0.3 mg/dL (0.0-0.4); BILIRUBIN,TOTAL 0.7 mg/dL (0.2-1.3); BLOOD UREA NITROGEN 17 mg/dL (7-20); CALCIUM 9.1 mg/dL (8.4-10.2); CARBON DIOXIDE 27 mmol/L (22-30); CHLORIDE 104 mmol/L (98-107); CREATINE KINASE 133 U/L (30-135); GLUCOSE 92 mg/dL (75-110); PHOSPHORUS 3.7 mg/dL (2.5-4.5); POTASSIUM 3.9 mmol/L (3.6-5.0); TOTAL PROTEIN 6.5 g/dL (6.3-8.2)
--- NOTE | 2019-05-11 01:21 | RADIOLOGY REPORT (SQ) ---
EXAM DESCRIPTION: X-ray single view chest. CLINICAL HISTORY: 54 years Female, pain COMPARISON: 09/01/2015 TECHNIQUE: Single portable x-ray view of the chest performed on 05/11/2019 at 12:52 AM FINDINGS: The lungs are well expanded and are clear. There is no evidence of a pneumothorax. The cardiac silhouette is normal in size and configuration. The mediastinal contours are normal. No acute osseous abnormality is identified. No focal soft tissue abnormalities are seen. Lines and tubes: None. IMPRESSION: No evidence of acute intrathoracic disease.
[2019-05-11 01:27] LABS: CREATINE KINASE MB 0.66 ng/mL (<4.55); TROPONIN I < 0.012 ng/mL
[2019-05-11 01:30] LABS: FREE T3 4.53 pg/mL (2.77-5.27); FREE T4 (FREE THYROXINE) 0.94 ng/dL (0.78-2.19)
[2019-05-11 01:43] LABS: THYROID STIMULATING HORMONE 3.94 uIU/mL (0.47-4.68)
[2019-05-11] MEDS ORDERED: AMIODARONE HCL 150 MG in DEXTROSE 5%-WATER 100 ML IV ONE (04:32)
[2019-05-11] MEDS ORDERED: DEXTROSE 5%-WATER 500 ML with AMIODARONE HCL 900 MG IV PRN ×4 (04:33→06:54)
[2019-05-11] MEDS ORDERED: AMIODARONE HCL INJ 150 MG/3 ML VIAL IV ONE ×3 (04:36→04:44)
[2019-05-11 06:16] LABS: INTERNATIONAL RATION (INR) 1.08
[2019-05-11 06:20] LABS: URINE AMPHETAMINES SCREEN NEGATIVE; URINE BARBITURATES SCREEN NEGATIVE; URINE BENZODIAZEPINES SCREEN NEGATIVE; URINE COCAINE SCREEN NEGATIVE; URINE MARIJUANA (THC) SCREEN NEGATIVE; URINE METHADONE SCREEN NEGATIVE; URINE PHENCYCLIDINE SCREEN NEGATIVE
[2019-05-11] MEDS ORDERED: MIDAZOLAM 2 MG/2 ML INJ ONE (06:23)
[2019-05-11] MEDS ORDERED: FENTANYL CITRATE INJ/PF 100 MCG/2 ML AMPUL ONE (06:23)
[2019-05-11] MEDS ORDERED: FENTANYL CITRATE INJ/PF 100 MCG/2 ML AMPUL IV ONE ×2 (06:25→06:42)
[2019-05-11] MEDS ORDERED: MIDAZOLAM 2 MG/2 ML INJ IV ONE ×2 (06:37→06:42)
[2019-05-11] MEDS ORDERED: ACETAMINOPHEN 325 MG TABLET PO PRN (06:57)
[2019-05-11] MEDS ORDERED: NITROGLYCERIN 0.4 MG/TAB 25 TAB/BOTTLE SL PRN (09:07)
[2019-05-11] MEDS ORDERED: TRAMADOL HCL 50 MG TABLET PO PRN (09:24)
--- NOTE | 2019-05-11 09:29 | PDOC H&P ---
History of Present Illness Admission Date/PCP: 05/11/19 07:24 SHERMAN SKY MD Patient complains of: Rapid heart rate with chest pain and lightheadedness History of Present Illness: DEBBI FRANCISCO is a 54 year old female who was feeling fine yesterday. Her and her were resting in the pool last evening. She did have a [place] hard seltzer [place] drink. At approximately 1130 she noticed rapid heart rate. At first she thought it might be 1 of her panic attacks. As it worsened and she began to have chest pain, nausea, lightheadedness and left-sided chest pain she knew it was more serious. She had her bring her to the emergency department. She has a history of panic attacks as well as hypertension, hyperlipidemia and chronic pain. She has obsessive-compulsive disorder and panic attacks with occasional migraine. She also has obstructive sleep apnea and wears her CPAP. She follows with a audit reviewer, Dr. Sky. Evaluation in the emergency department revealed that the patient was in rapid atrial fibrillation. She was given bolus of diltiazem which was temporarily effective but she reverted to fibrillation. She was placed on an IV diltiazem dri but began to develop hypotension. She was then given amiodarone as a bolus and placed on an infusion. This was not immediately effective either. At that point, after discussion with Dr. Sky, Dr. Baca elected to perform synchronized cardioversion. The patient was given Versed and benzodiazepine therapy. Synchronized cardioversion was successful and the patient was placed back on an amiodarone infusion. Her QTC was 503 making the use of sotalol contraindicated. The patient was referred to the hospitalist service for admission. Dr. Baca did place a formal consult for Dr. Sky to see the patient. Past Medical History Past Medical History: Chronic back pain. She is a patient at the pain clinic. 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 Musculoskeletal History Note: Reports a benign growth at T11-T12 Skin Medical History: Reports: None Psychiatric Medical History: Reports: Depression, Other - Obsessive-compulsive disorder and panic attacks Traumatic Medical History: Reports: None Hematology: Reports: None Infectious Medical History: Reports: None Past Surgical History Past Surgical History: Reports: Cholecystectomy, Hysterectomy, Orthopedic Surgery - back , wrist Social History Information Source: Patient, [facility] Records Lives with: Spouse/Significant other Smoking Status: Never Smoker Frequency of Alcohol Use: Occasional Hx Recreational Drug Use: No Drugs: None Hx Prescription Drug Abuse: No Past Social History Note: 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 Resuscitation Status: Full Code Surrogate healthcare decision maker:: is the decision maker Family History Family History: CAD, Malignancy - Colon cancer, Other - Atrial fibrillation Parental Family History Reviewed: Yes Children Family History Reviewed: Yes Sibling(s) Family History Reviewed.: Yes Medication/Allergy Allergies/Adverse Reactions: Sulfa (Sulfonamide Antibiotics) Allergy (Verified 09/01/15 10:51) Review of Systems Constitutional: PRESENT: as per HPI Eyes: ABSENT: visual disturbances Ears: ABSENT: hearing changes Nose, Mouth, and Throat: PRESENT: other - Recent respiratory infection lasting 3 weeks. ABSENT: mouth pain, sore throat Cardiovascular: PRESENT: chest pain - Currently pain-free, palpitations. ABSENT: edema Respiratory: ABSENT: cough, dyspnea, hemoptysis, sputum Gastrointestinal: PRESENT: nausea - Without vomiting. ABSENT: abdominal pain, coffee ground emesis, constipation, diarrhea, hematemesis, hematochezia, melena, vomiting Genitourinary: ABSENT: difficulty urinating, dysuria, hematuria Musculoskeletal: PRESENT: back pain. ABSENT: deformity, muscle weakness Integumentary: ABSENT: diaphoresis, erythema, pruritus, rash Neurological: ABSENT: abnormal gait, abnormal speech, confusion, focal weakness, memory loss, syncope, vertigo Psychiatric: PRESENT: anxiety. ABSENT: depression, hallucinations Endocrine: ABSENT: cold intolerance, heat intolerance, polydipsia, polyphagia, polyuria Hematologic/Lymphatic: ABSENT: easy bleeding, easy bruising, lymphadenopathy Physical Exam Vital Signs: Temp Pulse Resp BP Pulse Ox 98.2 F 169 H 16 106/65 99 05/11/19 03:15 05/11/19 00:35 05/11/19 07:11 05/11/19 07:11 05/11/19 07:11 Intake & Output 05/10/19 05/11/19 05/12/19 06:59 06:59 06:59 Intake Total 1054 0 Balance 1054 0 Weight 163.2 kg General appearance: PRESENT: cooperative, mild distress, morbidly obese, well- developed Head exam: PRESENT: atraumatic, normocephalic Eye exam: PRESENT: conjunctiva pink, EOMI. ABSENT: scleral icterus Ear exam: PRESENT: normal external ear exam. ABSENT: bleeding, drainage Mouth exam: PRESENT: dry mucosa, tongue midline Teeth exam: ABSENT: dental tenderness, poor dentation Neck exam: ABSENT: carotid bruit, JVD, lymphadenopathy Respiratory exam: PRESENT: clear to auscultation kym, symmetrical, unlabored. ABSENT: accessory muscle use, rales, rhonchi, tachypnea, wheezes Cardiovascular exam: PRESENT: irregular rhythm, tachycardia, other - Post cardioversion it was noted that exam was S1, S2 with a regular rate and rhythm. No additional heart sounds. Pulses: PRESENT: normal radial pulses, +1 pedal pulses bilateral GI/Abdominal exam: PRESENT: soft, other - Pendulous abdomen. ABSENT: diminished bowel sounds, distended, guarding, rebound, tenderness Rectal exam: PRESENT: deferred Gentrourinary exam: ABSENT: indwelling catheter Extremities exam: PRESENT: other - Nonpitting bilateral lower extremity edema consistent with body habitus. ABSENT: pedal edema Musculoskeletal exam: PRESENT: ambulatory, full ROM. ABSENT: deformity, tenderness Neurological exam: PRESENT: alert, awake, oriented to person, oriented to place, oriented to time, oriented to situation, CN II-XII grossly intact. ABSENT: altered, motor sensory deficit Psychiatric exam: PRESENT: anxious, appropriate affect. ABSENT: agitated Focused psych exam: ABSENT: delusional, restlessness Skin exam: PRESENT: dry, normal color, warm. ABSENT: rash Results Laboratory Results: 05/11/19 00:36 05/11/19 00:36 05/11/19 05/11/19 05/11/19 00:36 00:36 00:36 WBC 6.9 RBC 4.95 Hgb 13.8 Hct 40.9 MCV 83 MCH 27.9 MCHC 33.8 RDW 14.1 H Plt Count 191 Seg Neutrophils % 56.9 Lymphocytes % 30.9 Monocytes % 6.4 Eosinophils % 4.7 Basophils % 1.1 Absolute Neutrophils 3.9 Absolute Lymphocytes 2.1 Absolute Monocytes 0.4 Absolute Eosinophils 0.3 Absolute Basophils 0.1 Sodium 138.6 Potassium 3.9 Chloride 104 Carbon Dioxide 27 Anion Gap 8 BUN 17 Creatinine 0.80 Est GFR ( Amer) > 60 Est GFR (Non-Af Amer) > 60 Glucose 92 Calcium 9.1 Phosphorus 3.7 Magnesium 2.1 Total Bilirubin 0.7 AST 19 Alkaline Phosphatase 63 Total Protein 6.5 Albumin 3.9 TSH 3.94 Free T4 0.94 Free T3 pg/mL 4.53 05/11/19 05/11/19 05/11/19 00:36 00:36 00:36 Creatine Kinase 133 CK-MB (CK-2) 0.66 Troponin I < 0.012 NT-Pro-B Natriuret Pep 93 Impressions: Chest X-Ray 05/11/19 00:40 IMPRESSION: No evidence of acute intrathoracic disease. Assessment and Plan - Diagnosis (1) Atrial fibrillation with RVR Is this a current diagnosis for this admission?: Yes Plan: 05/11/2019-this is a new onset arrhythmia for the patient. She has had a nuclear stress test in the past (March 2018) which showed an ejection fraction of 59% and no evidence of reversible ischemia. She does follow-up with Dr. Sky for cardiology. Dr. Baca worked in concert with Dr. Tao for her initial treatment and a formal consult was placed as well. The patient initially responded to an IV bolus of diltiazem. She quickly reverted to atrial fibrillation. She was then started on intravenous amiodarone. This did not becca ak the fibrillation and so the amiodarone was held while she underwent synchronized cardioversion. She was given fentanyl and benzodiazepine therapy and subsequently successfully cardioverted to normal sinus rhythm. She was placed back on the amiodarone infusion and will receive amiodarone per the protocol. I will continue her carvedilol 25 mg twice daily as well. She is resting comfortably this morning. I have started therapeutic Lovenox and will discuss with Dr. Tao if there is need for ongoing anticoagulation if she remains in sinus rhythm. She will be admitted to [facility] and followed on telemetry. Of note her QTC was 503 and will monitor this while on antiarrhythmics. We need to adjust some of her other medications for this. (2) Chest pain Qualifiers: Chest pain type: chest pain due to myocardial ischemia Ischemic chest pain type: stable angina pectoris Qualified Code(s): I20.8 - Other forms of angina pectoris Is this a current diagnosis for this admission?: Yes Plan: 05/11/2019-the patient likely experienced a transient ischemia with the rapid atrial fibrillation. After 3 nitroglycerin doses she is pain-free. I will have sublingual nitroglycerin available. If she remains in sinus rhythm I do not believe this will be an issue. I would expect a transient increase in troponins from the cardioversion and rapid heartbeat. (3) Hypertension Qualifiers: Hypertension type: essential hypertension Qualified Code(s): I10 - Essential (primary) hypertension Is this a current diagnosis for this admission?: Yes Plan: 05/11/2019-the patient is being treated for hypertension. At home she takes lisinopril with hydrochlorothiazide 20/25 each morning and lisinopril 20 mg at night. With formulary substitution she will be on lisinopril 20 mg twice daily and hydrochlorothiazide 25 mg each morning. She is also on carvedilol. (4) Hypomagnesemia Is this a current diagnosis for this admission?: Yes Plan: 05/11/2019-the patient reports previous diagnosis of hypomagnesemia. We will continue her baseline dose of magnesium oxide 400 mg daily. (5) Hypokalemia Is this a current diagnosis for this admission?: Yes Plan: 05/11/2019-the patient reports a history of hypokalemia most likely from the hydrochlorothiazide. We will continue her potassium chloride monitor her electrolytes and replace serum potassium accordingly. (6) Obsessive compulsive disorder Qualifiers: Obsessive-compulsive disorder type: unspecified Qualified Code(s): F42.9 - Obsessive-compulsive disorder, unspecified Is this a current diagnosis for this admission?: Yes Plan: 05/11/2019-the patient does report a history of OCD. We will continue her current regimen of sertraline and monitor. As noted above we will monitor the QTC. As SSRI medications can prolong the QT interval we may need to adjust her medication regimen. Most likely I will defer this to her outpatient care team. (7) Anxiety Is this a current diagnosis for this admission?: Yes Plan: 05/11/2019-the patient has a history of panic attacks. She takes clonazepam 2 mg every night (as well as trazodone 50 mg to help with sleep). We will continue her current medication regimen. Lorazepam will be available on an as needed basis as well. (8) Chronic pain Qualifiers: Chronic pain type: other chronic pain Qualified Code(s): G89.29 - Other chronic pain Is this a current diagnosis for this admission?: Yes Plan: 05/11/2019-the patient does have chronic pain and follows at the pain management clinic. 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 She has had back surgery in the past. PRN medications will be available if needed. (9) Ocular migraine Is this a current diagnosis for this admission?: Yes Plan: 05/11/2019-the patient has history of ocular migraine. At home she takes Excedrin. We will treat on an as-needed basis. (10) Obstructive sleep apnea of adult Is this a current diagnosis for this admission?: Yes Plan: 05/11/2019-the patient wears CPAP at home. She will in fact have her bring her CPAP unit to the hospital for use during her hospitalization. (11) Morbid obesity with BMI of 50.0-59.9, adult Is this a current diagnosis for this admission?: Yes Plan: 05/11/2019-current BMI is 59.9. The patient would benefit from aggressive weight loss diet and eventually an exercise program. Bariatric surgery might be a co nsideration. - Time Time Spent with patient: 35 or more minutes Medications reviewed and adjusted accordingly: Yes Anticipated discharge: Home - Inpatient Certification Based on my medical assessment, after consideration of the patient's comorbidities, presenting symptoms, or acuity I expect that the services needed warrant INPATIENT care.: Yes I certify that my determination is in accordance with my understanding of Medicare's requirements for reasonable and necessary INPATIENT services [42 CFR 412.3e].: Yes Medical Necessity: Need Close Monitoring Due to Risk of Patient Decompensation, Need For Continuous Telemetry Monitoring, Need for Pain Control, Risk of Complication if Not Cared For in Hospital Post Hospital Care: D/C Claim Manager Documentation
--- NOTE | 2019-05-11 09:29 | EKG REPORT ---
SEVERITY:- BORDERLINE ECG - SINUS RHYTHM, CONVERTED FROM PA FIB WITH RVR AND CP BORDERLINE T ABNORMALITIES, DIFFUSE LEADS : Confirmed by: Jp Sky MD 11-May-2019 09:29:10
--- NOTE | 2019-05-11 09:31 | EKG REPORT ---
SEVERITY:- ABNORMAL ECG - ATRIAL FIBRILLATION WITH RVR NONSPECIFIC REPOL ABNORMALITY, DIFFUSE LEADS , DUE TO HEART RATE. : Confirmed by: Jp Sky MD 11-May-2019 09:30:06
--- NOTE | 2019-05-11 09:31 | EKG REPORT ---
SEVERITY:- ABNORMAL ECG - ATRIAL FIBRILLATION, V-RATE 130-197 WITH RVR. REPOLARIZATION ABNORMALITY, PROB RATE RELATED BORDERLINE PROLONGED QT INTERVAL : Confirmed by: Jp Sky MD 11-May-2019 09:30:55
[2019-05-11] MEDS ORDERED: ENOXAPARIN SODIUM INJ 40 MG/0.4 ML DISP.SYRIN SUBCUT SCH (10:00)
--- NOTE | 2019-05-11 10:16 | Progress Note ---
Provider Note Provider Note: Dr. Sky is out of town. His consult was by phone call. He spoke with Dr. Baca multiple times and spoke with me this morning. He will see the patient in the office next week.
--- NOTE | 2019-05-11 10:19 | ADVANCED CARE ---
- Diagnosis (1) Atrial fibrillation with RVR Diagnosis Current: Yes (2) Chest pain Diagnosis Current: Yes (3) Hypertension Diagnosis Current: Yes (4) Hypomagnesemia Diagnosis Current: Yes (5) Hypokalemia Diagnosis Current: Yes (6) Obsessive compulsive disorder Diagnosis Current: Yes (7) Anxiety Diagnosis Current: Yes (8) Chronic pain Diagnosis Current: Yes (9) Ocular migraine Diagnosis Current: Yes (10) Obstructive sleep apnea of adult Diagnosis Current: Yes (11) Morbid obesity with BMI of 50.0-59.9, adult Diagnosis Current: Yes Attendance: Discussion held at the bedside with the patient Resuscitation Status: Full Code Discussion: We reviewed the patient's CODE STATUS. She is a full code. This is not unreasonable. We reviewed multiple situations where the healthcare proxy would be beneficial especially to the decision maker (her ). Unexpected situations can arrive and very difficult decisions for the patient's can be somewhat alleviated if her wishes are documented ahead of time. We discussed a family member who from cancer. The patient is well aware that in terminal illness difficult decisions need to be made and it is very hard for family members to make those decisions without prior direction from the patient. Care Planning Goals: Goal would be to complete the healthcare proxy form. She can designate her is a primary but also designate a secondary decision maker. She can also be quite specific about treatment plan options and restrictions in the event of a terminal illness. Document(s) Completed: No document completed at this time Time Spent: 22 minutes
[2019-05-11] MEDS: LISINOPRIL 10 MG TABLET PO SCH ×2 (11:06→21:19)
[2019-05-11] MEDS: ENOXAPARIN SODIUM INJ 150 MG/1 ML DISP.SYRIN SUBCUT SCH ×2 (11:06→21:20)
[2019-05-11] MEDS: HYDROCHLOROTHIAZIDE 25 MG TABLET PO SCH (11:06)
[2019-05-11] MEDS: POTASSIUM CHLORIDE 10 MEQ CAPSULE.ER PO SCH (11:06)
[2019-05-11] MEDS: MAGNESIUM OXIDE 400 MG TABLET PO SCH (11:06)
[2019-05-11] MEDS: CARVEDILOL 12.5 MG TABLET PO SCH ×2 (11:06→21:19)
[2019-05-11] MEDS: LORAZEPAM 1 MG TABLET PO PRN ×2 (14:18→20:17)
[2019-05-11] MEDS ORDERED: ASPIRIN 81 MG TABLET, ENT COATED PO SCH (22:00)
[2019-05-11] MEDS ORDERED: SERTRALINE HCL 50 MG TABLET PO SCH (22:00)
[2019-05-11] MEDS ORDERED: CLONAZEPAM 1 MG TABLET PO SCH (22:00)
[2019-05-11] MEDS ORDERED: TRAZODONE HCL 50 MG TABLET PO SCH (22:00)
[2019-05-12] MEDS ORDERED: AMIODARONE HCL 200 MG TABLET PO SCH ×2 (04:00→18:00)
[2019-05-12] MEDS ORDERED: AMIODARONE HCL 200 MG TABLET PO ONE (05:30)
[2019-05-12] MEDS ORDERED: PANTOPRAZOLE SODIUM 20 MG TABLET.DR PO SCH (06:00)
[2019-05-12 06:35] LABS: ABSOLUTE EOSINOPHILS # (AUTO) 0.4 10^3/uL (0.0-0.6); ABSOLUTE LYMPHOCYTES (AUTO) 1.4 10^3/uL (0.5-4.7); ABSOLUTE MONOCYTES (AUTO) 0.3 10^3/uL (0.1-1.4); BASOPHILS % (AUTO) 0.9 % (0-2); EOSINOPHILS % (AUTO) 7.1 % (0-6); HEMATOCRIT 37.7 % (36.0-47.0); HEMOGLOBIN 12.6 g/dL (12.0-15.5); LYMPHOCYTES % (AUTO) 27.5 % (13-45); MEAN CORPUSCULAR HGB CONC 33.4 g/dL (32.0-36.0); MEAN CORPUSCULAR VOLUME 84 fl (80-97); MONOCYTES % (AUTO) 6.4 % (3-13); PLATELET COUNT 167 10^3/uL (150-450); RED BLOOD COUNT 4.49 10^6/uL (3.72-5.28); RED CELL DISTRIBUTION WIDTH 14.4 % (11.5-14.0); SEGMENTED NEUTROPHILS % (AUTO) 58.1 % (42-78); TOTAL CELLS COUNTED % (AUTO) 100 %; WHITE BLOOD COUNT 5.1 10^3/uL (4.0-10.5)
[2019-05-12 07:01] LABS: ANION GAP 5 (5-19); BLOOD UREA NITROGEN 15 mg/dL (7-20); CALCIUM 8.7 mg/dL (8.4-10.2); CARBON DIOXIDE 29 mmol/L (22-30); CHLORIDE 103 mmol/L (98-107); GLUCOSE 95 mg/dL (75-110); POTASSIUM 3.8 mmol/L (3.6-5.0)
--- NOTE | 2019-05-12 09:30 | EKG REPORT ---
SEVERITY:- BORDERLINE ECG - SINUS RHYTHM BORDERLINE T ABNORMALITIES, INFERIOR LEADS : Confirmed by: Jp Sky MD 12-May-2019 09:29:33
[2019-05-12] MEDS: LISINOPRIL 10 MG TABLET PO SCH (09:50)
[2019-05-12] MEDS: ENOXAPARIN SODIUM INJ 150 MG/1 ML DISP.SYRIN SUBCUT SCH (09:50)
[2019-05-12] MEDS: CARVEDILOL 12.5 MG TABLET PO SCH (09:50)
[2019-05-12] MEDS: HYDROCHLOROTHIAZIDE 25 MG TABLET PO SCH (09:50)
[2019-05-12] MEDS: MAGNESIUM OXIDE 400 MG TABLET PO SCH (09:50)
[2019-05-12] MEDS: POTASSIUM CHLORIDE 10 MEQ CAPSULE.ER PO SCH (09:50)
[2019-05-12] MEDS: LORAZEPAM 1 MG TABLET PO PRN (11:12)
--- NOTE | 2019-05-12 12:02 | PDOC DISCHARGE SUMMARY ---
General - Admit/Disc Date/PCP Admission Date/Primary Care Provider: 05/11/19 07:24 SHERMAN WEAVER MD Discharge Date: 05/12/19 - Discharge Diagnosis (1) Atrial fibrillation with RVR Is this a current diagnosis for this admission?: Yes Summary: The patient presented with new onset atrial fibrillation with rapid ventricular response last night. In the emergency department, after discussions with Dr. Weaver, diltiazem, digoxin and amiodarone were tried without good rate control maintaining a normal pressure or cardioversion. Therefore the patient underwent synchronized cardioversion with the defibrillator. She immediately went into sinus rhythm. She has been in sinus rhythm through the night. Interestingly, her QTC was 503 last night. Amiodarone can increase the QT interval. The QTC this morning is only 428. The patient had serial cardiac enzymes and all troponins were less than 0.012. After discussion with Dr. Weaver I will discharge the patient on amiodarone 400 mg twice daily. He will see her in the office this coming week. The patient will call the office tomorrow morning. (2) Chest pain Is this a current diagnosis for this admission?: Yes Summary: The patient has had history of panic attacks and this morning reported chest discomfort. At that time she was in sinus rhythm with a normal blood pressure. After discussion it seems that she is anxious. I explained that this is understandable especially after last night's episode. She is aware that the amiodarone has kept her in sinus rhythm and that her enzymes are negative. I explained that within reasonable medical certainty I feel her chest pain is more anxiety related and not cardiogenic. (3) Hypertension Is this a current diagnosis for this admission?: Yes Summary: The patient will return to her lisinopril with hydrochlorothiazide combination (20/25) each morning and lisinopril 20 mg at night. She is also on carvedilol 25 mg twice daily. (4) Hypomagnesemia Is this a current diagnosis for this admission?: Yes Summary: Serum magnesium was normal during this hospitalization. The patient will continue on her magnesium oxide as prescribed by cardiology. (5) Hypokalemia Is this a current diagnosis for this admission?: Yes Summary: Serum potassium is normal. She will continue her current potassium chloride dose per her hiv/aids care nurse. (6) Obsessive compulsive disorder Is this a current diagnosis for this admission?: Yes Summary: She will continue her sertraline. She also takes clonazepam at night. (7) Anxiety Is this a current diagnosis for this admission?: Yes Summary: She uses clonazepam scheduled every night. She uses trazodone to help with sleep. In addition I am going to give her a prescription for 5 tablets of 1 mg lorazepam to help with anxiety of this episode as she transitions to home. (8) Chronic pain Is this a current diagnosis for this admission?: Yes (9) Ocular migraine Is this a current diagnosis for this admission?: Yes Summary: The patient did not experience any migraine during this admission. (10) Obstructive sleep apnea of adult Is this a current diagnosis for this admission?: Yes Summary: The patient will continue with her CPAP at home. She brought her own unit to the hospital and so the settings are already taken care of. (11) Morbid obesity with BMI of 50.0-59.9, adult Is this a current diagnosis for this admission?: Yes Summary: She does have a pool. Believes she is exercising in the pool. Suggest aggressive dieting for weight loss. - Additional Information Resuscitation Status: Full Code Discharge Diet: Cardiac, Other (Comments) - Suggest low caffeine Discharge Activity: Activity As Tolerated, Balance Activity w/Rest Prescriptions: Amiodarone HCl [Amiodarone HCl 400 mg Tablet] 400 mg PO DAILY #14 tablet Lorazepam [Ativan 1 mg Tablet] 1 mg PO Q6HP PRN 3 Days #5 tablet PRN Reason: Home Medications: Carvedilol [Coreg 25 mg Tablet] 25 mg PO Q12 05/11/19 Clonazepam [Klonopin 2 mg Tablet] 2 mg PO QHS 05/11/19 Ergocalciferol (Vitamin D2) [Drisdol 50,000 unit (1.25MG) Capsule] 50,000 unit PO FR@0800 05/11/19 Lisinopril [Zestril] 20 mg PO QHS 05/11/19 Lisinopril/Hydrochlorothiazide [Zestoretic 20-25 mg Tablet] 1 tab PO QAM 05/11/19 Magnesium Oxide [Mag-Ox 400 mg Tablet] 400 mg PO DAILY 05/11/19 Potassium Chloride [Klor-Con M20] 20 meq PO [id number] 05/11/19 Sertraline HCl [Zoloft] 200 mg PO QHS 05/11/19 Trazodone HCl [Desyrel] 50 mg PO QHS 05/11/19 Acetaminophen [Tylenol 325 mg Tablet] 650 mg PO Q4HP PRN tablet 05/12/19 Amiodarone HCl [Amiodarone HCl 400 mg Tablet] 400 mg PO DAILY #14 tablet 05/12/19 Aspirin [Ecotrin 81 mg EC Tablet] 81 mg PO QHS tabec 05/12/19 Carvedilol [Coreg 12.5 mg Tablet] 25 mg PO Q12 tablet 05/12/19 Clonazepam [Klonopin 1 mg Tablet] 2 mg PO QHS tablet 05/12/19 Hydrochlorothiazide [Hydrodiuril 25 mg Tablet] 25 mg PO DAILY tablet 05/12/19 Lisinopril [Prinivil 10 mg Tablet] 20 mg PO Q12 tablet 05/12/19 Lorazepam [Ativan 1 mg Tablet] 1 mg PO Q6HP PRN 3 Days #5 tablet 05/12/19 Magnesium Oxide [Mag-Ox 400 mg Tablet] 400 mg PO DAILY tablet 05/12/19 Potassium Chloride [Klor-Con 10 Meq Capsule ER] 20 meq PO DAILY capsule.er 05/12/19 Sertraline HCl [Zoloft 50 mg Tablet] 200 mg PO QHS tablet 05/12/19 History of Present Illness Patient complains of: Rapid heartbeat with lightheadedness, chest pain and nausea History of Present Illness: DEBBI FRANCISCO is a 54 year old female who was feeling fine yesterday. Her and her were resting in the pool last evening. She did have a [place] hard seltzer [place] drink. At approximately 1130 she noticed rapid heart rate. At first she thought it might be 1 of her panic attacks. As it worsened and she began to have chest pain, nausea, lightheadedness and left-sided chest pain she knew it was more serious. She had her bring her to the emergency department. She has a history of panic attacks as well as hypertension, hyperlipidemia and chronic pain. She has obsessive-compulsive disorder and panic attacks with occasional migraine. She also has obstructive sleep apnea and wears her CPAP. She follows with a hiv/aids care nurse, Dr. Weaver. Evaluation in the emergency department revealed that the patient was in rapid atrial fibrillation. She was given bolus of diltiazem which was temporarily effective but she reverted to fibrillation. She was placed on an IV diltiazem dri but began to develop hypotension. She was then given amiodarone as a bolus and placed on an infusion. This was not immediately effective either. At that point, after discussion with Dr. Weaver, Dr. Baca elected to perform synchronized cardioversion. The patient was given Versed and benzodiazepine therapy. Synchronized cardioversion was successful and the patient was placed back on an amiodarone infusion. Her QTC was 503 making the use of sotalol contraindicated. The patient was referred to the hospitalist service for admission. Dr. Baca did place a formal consult for Dr. Weaver to see the patient. Hospital Course Hospital Course: The patient had an unremarkable hospital course. When she finished her amio darone infusion protocol she was started on amiodarone 400 mg twice daily. Her infusion was to and at 5:00 this morning and so at 4:00 I gave her a 200 mg dose of amiodarone. She remained in sinus rhythm through the night. As per my discussion with her hiv/aids care nurse we will discharged home with medications as outlined above. Follow-up with cardiology this week. Physical Exam Vital Signs: Temp Pulse Resp BP Pulse Ox 98.5 F 77 16 136/63 H 99 05/12/19 08:12 05/12/19 08:12 05/12/19 08:12 05/12/19 08:12 05/12/19 08:12 Intake & Output 05/11/19 05/12/19 05/13/19 06:59 06:59 06:59 Intake Total 1054 2698 Output Total 550 Balance 1054 2148 Weight 163.2 kg 175.9 kg General appearance: PRESENT: cooperative, mild distress, morbidly obese, well- developed Head exam: PRESENT: atraumatic, normocephalic Respiratory exam: PRESENT: clear to auscultation kym, symmetrical, unlabored. ABSENT: rales, rhonchi, tachypnea, wheezes Cardiovascular exam: PRESENT: RRR, +S1, +S2 GI/Abdominal exam: PRESENT: normal bowel sounds, soft. ABSENT: tenderness Neurological exam: PRESENT: alert, awake, oriented to person, oriented to place, oriented to time, oriented to situation, CN II-XII grossly intact. ABSENT: motor sensory deficit Psychiatric exam: PRESENT: anxious, appropriate affect. ABSENT: agitated Results Laboratory Results: 05/12/19 05:16 05/12/19 05:16 05/12/19 05/12/19 05:16 05:16 WBC 5.1 RBC 4.49 Hgb 12.6 Hct 37.7 MCV 84 MCH 28.0 MCHC 33.4 RDW 14.4 H Plt Count 167 Seg Neutrophils % 58.1 Lymphocytes % 27.5 Monocytes % 6.4 Eosinophils % 7.1 H Basophils % 0.9 Absolute Neutrophils 3.0 Absolute Lymphocytes 1.4 Absolute Monocytes 0.3 Absolute Eosinophils 0.4 Absolute Basophils 0.0 Sodium 137.3 Potassium 3.8 Chloride 103 Carbon Dioxide 29 Anion Gap 5 BUN 15 Creatinine 0.69 Est GFR ( Amer) > 60 Est GFR (Non-Af Amer) > 60 Glucose 95 Calcium 8.7 Magnesium 2.2 05/11/19 05/11/19 05/11/19 00:36 00:36 00:36 Creatine Kinase 133 CK-MB (CK-2) 0.66 Troponin I < 0.012 NT-Pro-B Natriuret Pep 93 05/11/19 05/11/19 05/11/19 07:12 13:28 19:04 Creatine Kinase CK-MB (CK-2) Troponin I < 0.012 < 0.012 < 0.012 NT-Pro-B Natriuret Pep Impressions: Chest X-Ray 05/11/19 00:40 IMPRESSION: No evidence of acute intrathoracic disease. Qualifiers - * PATIENT BEING DISCHARGED WITH ANY OF THE FOLLOWING DIAGNOSIS: No Acute Heart Failure - Is this a Heart Failure Patient?: No Plan Discharge Plan: As outlined above
[2019-05-12 12:07] VITALS: BP 116/59
== END 2019-05-12 12:38 | disposition home or self-care (01) | DRG 309 ==
LOC: ER 00:17 → EH 07:24 → 3S 09:45
PROVIDERS: ADMIT Hospitalist; ATTEND Hospitalist
PROC: 5A2204Z Restoration of Cardiac Rhythm, Single (ICD-10-PCS; principal; 2019-05-11)
DX: I48.91 Unspecified atrial fibrillation (principal); I50.20 Unspecified systolic (congestive) heart failure; Z68.43 Body mass index [BMI] 50.0-59.9, adult; I11.0 Hypertensive heart disease with heart failure; G43.B0 Ophthalmoplegic migraine, not intractable; R00.2 Palpitations; E83.42 Hypomagnesemia; E87.6 Hypokalemia; F42.9 Obsessive-compulsive disorder, unspecified; F41.8 Other specified anxiety disorders; E66.01 Morbid (severe) obesity due to excess calories
CPT/HCPCS: 36415; 71045; 80048; 80053; 80307; 82550; 82553; 83735; 83880; 84100; 84439; 84443; 84481; 84484; 85025; 85610; 93005; 93010; 96361; 96365; 96375; 96376; 99285; 99152; J0282; J1650; J2250; J3010; J3490; J7030; J7060

== ENCOUNTER → 2019-05-23 | Outpatient (CLI) | payer OTHER | LOC: RT 10:12 | PROVIDERS: ATTEND Internal Medicine Cardiovascular Disease | DX: I48.0 Paroxysmal atrial fibrillation (principal); Z79.899 Other long term (current) drug therapy | CPT/HCPCS: 94010; 94729 ==

== ENCOUNTER → 2019-05-23 | Outpatient (CLI) | payer OTHER ==
--- NOTE | 2019-05-23 15:18 | WOMENS IMAGING REPORT ---
EXAM DESCRIPTION: 3D SCREENING MAMMO BILAT COMPLETED DATE/TIME: 05/23/2019 3:00 pm REASON FOR STUDY: Z12.31 SCREENING MAMMO Z12.31 ENCNTR SCREEN MAMMOGRAM FOR MALIGNANT NEOPLASM OF B RE COMPARISON: 2015 to 2017 EXAM PARAMETERS: Views: Standard craniocaudal and mediolateral oblique views of each breast recorded using digital acquisition and breast tomosynthesis. Read with the assistance of CAD. .[facility] - R2 Fire Engine Operator Version 9.2 LIMITATIONS: None. FINDINGS: No suspicious masses, suspicious calcifications or architectural distortion. No areas of c oncern. IMPRESSION: NEGATIVE MAMMOGRAM. BIRADS 1. BREAST DENSITY: b. There are scattered areas of fibroglandular density. BIRAD: ASSESSMENT: 1 NEGATIVE RECOMMENDATION: ROUTINE SCREENING COMMENT: The patient has been notified of the results by letter per MQSA requirements. Additional no tification policies are in place for contacting patient with suspicious or incomplete findings. Quality ID #[id number]: The [employer] recommends an annual screening mammogram for women aged 40 years or over. This facility utilizes a reminder system to ensure that all patients receive reminder letters, and/or direct phone calls for appointments. This includes reminders for routine scr eening mammograms, diagnostic mammograms, or other Breast Imaging Interventions when appropriate. Th is patient will be placed in the appropriate reminder system. TECHNICAL DOCUMENTATION: FINDING NUMBER: (1) ASSESSMENT: (1) JOB ID: [id number] [employer]- All Rights Reserved Reading location - IP/workstation name: [email or web address]
== END ==
LOC: WI 13:40
PROVIDERS: ATTEND Physician Assistant
DX: Z12.31 Encounter for screening mammogram for malignant neoplasm of breast (principal)
CPT/HCPCS: 77063; 77067

== ENCOUNTER → 2019-07-04 | Outpatient (CLI) | payer OTHER ==
--- NOTE | 2019-07-04 12:07 | WOMENS IMAGING REPORT ---
EXAM DESCRIPTION: BONE DENSITY HIP/SPINE COMPLETED DATE/TIME: 07/04/2019 10:37 am REASON FOR STUDY: Z78.0 ASYMPTOMATIC MENOPAUSAL STATE Z78.0 ASYMPTOMATIC MENOPAUSAL STATE COMPARISON: None. TECHNIQUE: Dual-Energy X-ray Absorptiometry (DEXA) of the AP Spine and Hip. LIMITATIONS: None. FINDINGS: LUMBAR SPINE: The bone mineral density (BMD) measured from L1-L4 in the AP projection correlates with a T-score of +2.1, which is normal as defined by the World Health Organization. BMD Change vs Baseline: N/A HIP: The bone mineral density (BMD) measured in the left femoral neck at the hip correlates with a T-score of +3.0, which is normal as defined by the World Health Organization. BMD Change vs Baseline: N/A 10 year Fracture Risk Assessment: Major Osteoporotic Fracture: Not available. Hip Fracture: Not available. IMPRESSION: 1. LUMBAR SPINE WHO CLASSIFICATION: Normal 2. HIP WHO CLASSIFICATION: Normal OVERALL ASSESSMENT: WHO CLASSIFICATION: Normal COMMENT: The World Health Organization defines low BMD as follows: T-score: Normal: Greater than -1.0 Osteopenia: Between -1.0 and -2.5 Osteoporosis: Less than -2.5 without fractures Established osteoporosis: Less than -2.5 with fractures In general, you may wish to consider: Diagnosis Treatment Follow-up DEXA Normal BMD Prevention 2-3 years Osteopenia Prevention/Therapy 1-2 years Osteoporosis Therapy Yearly TECHNICAL DOCUMENTATION: JOB ID: [id number] [employer]- All Rights Reserved Reading location - IP/workstation name: [email or web address]
== END ==
LOC: WI 10:18
PROVIDERS: ATTEND Physician Assistant
DX: Z13.820 Encounter for screening for osteoporosis (principal); Z78.0 Asymptomatic menopausal state
CPT/HCPCS: 77080

== ENCOUNTER → 2019-07-08 | Outpatient (CLI) | payer OTHER ==
--- NOTE | 2019-07-08 18:15 | RADIOLOGY REPORT (SQ) ---
EXAM DESCRIPTION: CAROTID DOPPLER COMPLETED DATE/TIME: 07/08/2019 3:27 pm REASON FOR STUDY: BRUIT R09.89 OTH SYMPTOMS AND SIGNS INVOLVING THE CIRC AND RESP SY COMPARISON: None. TECHNIQUE: Grayscale ultrasound, Doppler velocity and spectra, and color Doppler images acquired of the extra-cranial carotid and vertebral arteries. Images stored on PACS. LIMITATIONS: None. FINDINGS: RIGHT CAROTID CCA Velocities: Diffuse intimal thickening in the common carotid artery without focal stenosis. Righ t common carotid artery peak systolic velocity 0.96 m/sec ICA Velocities Peak systolic 0.7 m/s. End diastolic 0.23 m/s. Proximal ICA/CCA peak systolic ratio normal. Spectra normal. No significant plaque. LEFT CAROTID CCA Velocities: Diffuse intimal thickening left common carotid artery without focal stenosis. Left c ommon carotid artery peak systolic velocity 1.1 m/sec. ICA Velocities Peak systolic 0.81 m/s. End diastolic 0.33 m/s. Proximal ICA/CCA peak systolic ratio normal. Spectra normal. No significant plaque. VERTEBRAL ARTERIES: Antegrade flow. Normal waveforms. SUBCLAVIAN ARTERIES: Not evaluated OTHER: No other significant finding. IMPRESSION: NO HEMODYNAMICALLY SIGNIFICANT STENOSIS. COMMENT: Quality ID #195: Velocity criteria are extrapolated from the diameter data as defined by t [place] Society of Radiologists in Ultrasound Consensus Conference. Radiology 2003: 229; 340-346. TECHNICAL DOCUMENTATION: JOB ID: [id number] [employer]- All Rights Reserved Reading location - IP/workstation name: [email or web address]
== END ==
LOC: RAD 14:28
PROVIDERS: ATTEND Physician Assistant
DX: R09.89 Other specified symptoms and signs involving the circulatory and respiratory systems (principal)
CPT/HCPCS: 93880

== ENCOUNTER → 2019-08-16 | Outpatient (CLI) | payer OTHER ==
[2019-08-16 16:40] LABS: ALBUMIN 4.1 g/dL (3.5-5.0); ALKALINE PHOSPHATASE 56 U/L (38-126); ANION GAP 9 (5-19); ASPARTATE AMINO TRANSFERASE 18 U/L (14-36); BILIRUBIN,DIRECT 0.1 mg/dL (0.0-0.4); BILIRUBIN,TOTAL 0.4 mg/dL (0.2-1.3); BLOOD UREA NITROGEN 18 mg/dL (7-20); CALCIUM 9.5 mg/dL (8.4-10.2); CARBON DIOXIDE 28 mmol/L (22-30); CHLORIDE 105 mmol/L (98-107); GLUCOSE 82 mg/dL (75-110); POTASSIUM 4.2 mmol/L (3.6-5.0); TOTAL PROTEIN 6.7 g/dL (6.3-8.2)
== END ==
LOC: OD 14:48
PROVIDERS: ATTEND Internal Medicine Cardiovascular Disease
DX: I48.0 Paroxysmal atrial fibrillation (principal); Z79.899 Other long term (current) drug therapy
CPT/HCPCS: 36415; 80048; 80076; 83735; 84443

== ENCOUNTER → 2019-10-19 | Outpatient (CLI) | payer OTHER ==
[2019-10-19 11:18] LABS: ALBUMIN 3.7 g/dL (3.5-5.0); ALKALINE PHOSPHATASE 45 U/L (38-126); ANION GAP 8 (5-19); ASPARTATE AMINO TRANSFERASE 15 U/L (14-36); BILIRUBIN,DIRECT 0.3 mg/dL (0.0-0.4); BILIRUBIN,TOTAL 0.5 mg/dL (0.2-1.3); BLOOD UREA NITROGEN 21 mg/dL (7-20); CALCIUM 9.2 mg/dL (8.4-10.2); CARBON DIOXIDE 28 mmol/L (22-30); CHLORIDE 104 mmol/L (98-107); CHOLESTEROL 247.48 mg/dL (0-200); GLUCOSE 94 mg/dL (75-110); POTASSIUM 4.2 mmol/L (3.6-5.0); TOTAL PROTEIN 6.6 g/dL (6.3-8.2); TRIGLYCERIDES 68 mg/dL (<150)
[2019-10-19 11:28] LABS: DIRECT LDL 155 mg/dL (<100)
== END ==
LOC: OD 10:09
PROVIDERS: ATTEND Internal Medicine Cardiovascular Disease
DX: I48.0 Paroxysmal atrial fibrillation (principal); E78.2 Mixed hyperlipidemia; M79.10 Myalgia, unspecified site; Z79.899 Other long term (current) drug therapy
CPT/HCPCS: 36415; 80048; 80061; 80076; 83525; 83735; 86141

== ENCOUNTER 2019-11-06 11:42 | Emergency (ER) | payer OTHER ==
--- NOTE | 2019-11-06 12:49 | RADIOLOGY REPORT (SQ) ---
EXAM DESCRIPTION: CHEST 2 VIEWS COMPLETED DATE/TIME: 11/06/2019 12:40 pm REASON FOR STUDY: chest pain COMPARISON: AP view of the chest from 05/11/2019. EXAM PARAMETERS: NUMBER OF VIEWS: Two views. TECHNIQUE: PA and lateral views of the chest were obtained.. RADIATION DOSE: NA LIMITATIONS: none FINDINGS: LUNGS AND PLEURA: The left lateral costophrenic sulcus is blunted. There is no consolidat ion or pneumothorax. MEDIASTINUM AND HILAR STRUCTURES: No mediastinal or hilar contour abnormality. HEART AND VASCULAR STRUCTURES: The cardiac silhouette and pulmonary vasculature are within normal alfonso its. BONES: No acute findings. HARDWARE: Cholecystectomy clips. OTHER: No other finding. IMPRESSION: Trace left pleural effusion. TECHNICAL DOCUMENTATION: JOB ID: [id number] [employer]- All Rights Reserved Reading location - IP/workstation name: [email or web address]
[2019-11-06 12:54] LABS: ABSOLUTE BASOPHILS # (AUTO) 0.1 10^3/uL (0.0-0.2); ABSOLUTE EOSINOPHILS # (AUTO) 0.3 10^3/uL (0.0-0.6); ABSOLUTE MONOCYTES (AUTO) 0.3 10^3/uL (0.1-1.4); ABSOLUTE NEUT (AUTO) 4.2 10^3/uL (1.7-8.2); ALBUMIN 3.8 g/dL (3.5-5.0); ALKALINE PHOSPHATASE 60 U/L (38-126); ANION GAP 7 (5-19); ASPARTATE AMINO TRANSFERASE 16 U/L (14-36); BILIRUBIN,TOTAL 0.4 mg/dL (0.2-1.3); BLOOD UREA NITROGEN 24 mg/dL (7-20); CALCIUM 9.2 mg/dL (8.4-10.2); CARBON DIOXIDE 27 mmol/L (22-30); CHLORIDE 104 mmol/L (98-107); CREATINE KINASE 65 U/L (30-135); EOSINOPHILS % (AUTO) 4.3 % (0-6); GLUCOSE 88 mg/dL (75-110); HEMATOCRIT 38.6 % (36.0-47.0); HEMOGLOBIN 13.3 g/dL (12.0-15.5); LYMPHOCYTES % (AUTO) 17.5 % (13-45); MEAN CORPUSCULAR HEMOGLOBIN 28.2 pg (27.0-33.4); MEAN CORPUSCULAR HGB CONC 34.4 g/dL (32.0-36.0); MEAN CORPUSCULAR VOLUME 82 fl (80-97); MONOCYTES % (AUTO) 5.8 % (3-13); PLATELET COUNT 212 10^3/uL (150-450); POTASSIUM 4.1 mmol/L (3.6-5.0); RED BLOOD COUNT 4.72 10^6/uL (3.72-5.28); RED CELL DISTRIBUTION WIDTH 14.8 % (11.5-14.0); SEGMENTED NEUTROPHILS % (AUTO) 71.4 % (42-78); TOTAL CELLS COUNTED % (AUTO) 100 %; TOTAL PROTEIN 6.3 g/dL (6.3-8.2); WHITE BLOOD COUNT 5.9 10^3/uL (4.0-10.5)
[2019-11-06 13:05] LABS: CREATINE KINASE MB 0.28 ng/mL (<4.55)
[2019-11-06 13:06] LABS: TROPONIN I < 0.012 ng/mL
[2019-11-06] MEDS ORDERED: ASPIRIN 81 MG TABLET, CHEWABLE PO ONE (15:14)
--- NOTE | 2019-11-06 15:18 | ER Document Report ---
ED Cardiac - General Chief Complaint: General Weakness Stated Complaint: GENERAL WEAKNESS Time Seen by Provider: 11/06/19 14:58 Primary Care Provider: WADE GUERRA MD [Primary Care Provider] - Follow up tomorrow SHERMAN WEAVER MD [EMERITUS] - Follow up in 3-5 days Mode of Arrival: Medic Information source: Patient Notes: Patient states that around 9 AM this morning she was at work and felt lightheaded and had a fluttering in her chest. Patient states she had a sensa tion of radiation to the jaw although denied any chest pain. Patient states she felt dizzy had increased fatigue. Patient denies any nausea or vomiting. Patient states she has had mild cough that just are today. Patient presently denies any discomfort in the chest but states that she feels off. Patient states that she went to see her pharmacy assistant and saw the PA there and had an EKG performed. They recommended her coming to the emergency department for further evaluation. TRAVEL OUTSIDE OF THE [place] IN LAST 30 DAYS: No - HPI Patient complains to provider of: Chest pain - Fluttering, Shortness of breath Quality of pain: Other - Fluttering sensation Chest pain radiation location: Left jaw Severity at worst: Mild Pain level currently: Denies Chest pain precipitating factors: At Rest Cardiac risk factors: Hypertension. denies: Smoker Associated symptoms: Jaw pain, Lightheaded, Shortness of breath. 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 Lives with: Spouse/Significant other Family History: Reviewed & Not Pertinent, CAD Patient has suicidal ideation: No Patient has homicidal ideation: No - Past Medical History Cardiac Medical History: Reports: Hx Hypertension Pulmonary Medical History: Reports: Hx Bronchitis Neurological Medical History: Reports: Hx Migraine - Ocular Endocrine Medical History: Denies: Hx Diabetes Mellitus Type 2, Hx Hyperthyroidism, Hx Hypothyroidism Renal/ Medical History: Denies: Hx Peritoneal Dialysis Psychiatric Medical History: Reports: Hx Anxiety, Hx Depression Past Surgical History: Reports: Hx Cholecystectomy, Hx Hysterectomy, Hx Orthopedic Surgery - back , wrist Review of Systems - Review of Systems Constitutional: Malaise. denies: Fever, Recent illness EENT: No symptoms reported Cardiovascular: Chest pain - Fluttering in the chest, Lightheaded Respiratory: Cough, Short of breath Gastrointestinal: No symptoms reported. denies: Abdominal pain, Diarrhea, Nausea, Vomiting Genitourinary: No symptoms reported. denies: Dysuria Female Genitourinary: No symptoms reported Musculoskeletal: No symptoms reported. denies: Back pain Skin: No symptoms reported Hematologic/Lymphatic: No symptoms reported Neurological/Psychological: No symptoms reported Physical Exam - Vital signs Vitals: Resp 15 11/06/19 11:52 - General General appearance: Appears well, Alert In distress: None - HEENT Head: Normocephalic, Atraumatic Eyes: Normal Conjunctiva: Normal Mouth/Lips: Normal Neck: Normal - Respiratory Respiratory status: No respiratory distress Chest status: Nontender Breath sounds: Normal. No: Rales, Rhonchi, Stridor, Wheezing Chest palpation: Normal - Cardiovascular Rhythm: Regular Heart sounds: S1 appreciated, S2 appreciated - Abdominal Inspection: Morbidly Obese Distension: No distension Bowel sounds: Normal Tenderness: Nontender Organomegaly: No organomegaly - Back Back: Normal, Nontender. No: CVA tenderness - Extremities General upper extremity: Normal inspection, Normal strength General lower extremity: Normal inspection, Edema - 2+ bilat, Normal strength - Neurological Neuro grossly intact: Yes Cognition: Normal Yaya Coma Scale Eye Opening: Spontaneous Yaya Coma Scale Verbal: Oriented Yaya Coma Scale Motor: Obeys Commands Yaya Coma Scale Total: 15 - Psychological Associated symptoms: Normal affect, Normal mood - Skin Skin Temperature: Warm Skin Moisture: Dry Skin Color: Normal Course - Re-evaluation Re-evalutation: 11/06/19 17:00 Patient continues to deny any chest discomfort at this time. Patient does state that she just feels off. Patient does report mild cough that started today. Patient with stable vital signs and no elevation in delta troponin. Consulted with Dr. Walker regarding patient presentation and diagnostic evaluation. Recom mends consultation with patient's pharmacy assistant as it was their office that advised patient to come here. Spoke with Dr. Weaver regarding patient presentation. Dr. Weaver was not the person to see her in the office today but he did review her previous EKG, stress test and was advised of her test results here today. Dr. Weaver states that patient's T wave inversions in the V1 through 6 are not new changes and were present on an EKG that he had in the office back in August of the previous year. After discussing her results here today he does not feel that she has a cardiac issue that requires admission or transfer at this time. He does recommend treating her cough as she has a pleural effusion noted on the x-ray. He also advises having her follow-up with her primary doctor for further evaluation of pleural effusion and states that he will plan to do a stress test on outpatient basis after her lung issue has been further evaluated and resolved. He does recommend giving her a prescription for nitroglycerin tablets sublingual with instructions for use. Other recommends that if patient has any change in symptoms and has definitive chest discomfort or any concerning symptoms that she should return to the emergency department for further evaluation. 11/06/19 17:02 Presentation of chest pain in an otherwise well appearing patient. Low clinical suspicion for ACS given clinical history, exam, EKG without acute changes, and negative initial troponin and delta troponin. HEART score less than or equal to 3. PE also seems unlikely given clinical history, absence of tachycardia or dyspnea. Patient is PERC criteria negative. CXR without evidence of pneumothorax or pneumonia, although does have a trace pleural effusion to the left lower lobe. No widened mediastinum. Chest fluttering in a patient without evidence of cardiac or other serious etiology on workup today. I discussed with patient that, based on their age, risk factors and emergency department testing today, the likelihood that their symptoms are related to a heart attack is very low. The patient demonstrates decision making capacity and has verbalized an understanding of these risks to me. Based on this, the patient has chosen to follow-up as an outpatient. Usual chest pain return precautions reviewed. The patient states understanding and agreement with this plan. - Vital Signs Vital signs: Temp Pulse Resp BP Pulse Ox 98.4 F 58 L 18 109/55 L 99 11/06/19 17:38 11/06/19 17:38 11/06/19 17:38 11/06/19 17:38 11/06/19 17:38 - Laboratory Result Diagrams: 11/06/19 11:33 11/06/19 11:33 Laboratory results interpreted by me: 11/06/19 11/06/19 11:33 11:33 RDW 14.8 H BUN 24 H 11/06/19 17:00 Labs- Entire Visit 11/06/19 11/06/19 11/06/19 11:33 11:33 11:33 WBC 5.9 RBC 4.72 Hgb 13.3 Hct 38.6 MCV 82 MCH 28.2 MCHC 34.4 RDW 14.8 H Plt Count 212 Lymph % (Auto) 17.5 Mcduffie % (Auto) 5.8 Eos % (Auto) 4.3 Baso % (Auto) 1.0 Absolute Neuts (auto) 4.2 Absolute Lymphs (auto) 1.0 Absolute Monos (auto) 0.3 Absolute Eos (auto) 0.3 Absolute Basos (auto) 0.1 Seg Neutrophils % 71.4 Sodium 137.6 Potassium 4.1 Chloride 104 Carbon Dioxide 27 Anion Gap 7 BUN 24 H Creatinine 0.88 Est GFR ( Amer) > 60 Est GFR (MDRD) Non-Af > 60 Glucose 88 Calcium 9.2 Total Bilirubin 0.4 Direct Bilirubin 0.0 Neonat Total Bilirubin Not Reportable Neonat Direct Bilirubin Not Reportable Neonat Indirect Bili Not Reportable AST 16 ALT 13 Alkaline Phosphatase 60 Creatine Kinase 65 CK-MB (CK-2) 0.28 Troponin I < 0.012 Total Protein 6.3 Albumin 3.8 11/06/19 14:51 WBC RBC Hgb Hct MCV MCH MCHC RDW Plt Count Lymph % (Auto) Mcduffie % (Auto) Eos % (Auto) Baso % (Auto) Absolute Neuts (auto) Absolute Lymphs (auto) Absolute Monos (auto) Absolute Eos (auto) Absolute Basos (auto) Seg Neutrophils % Sodium Potassium Chloride Carbon Dioxide Anion Gap BUN Creatinine Est GFR ( Amer) Est GFR (MDRD) Non-Af Glucose Calcium Total Bilirubin Direct Bilirubin Neonat Total Bilirubin Neonat Direct Bilirubin Neonat Indirect Bili AST ALT Alkaline Phosphatase Creatine Kinase CK-MB (CK-2) Troponin I < 0.012 Total Protein Albumin - Diagnostic Test Radiology reviewed: Image reviewed, Reports reviewed - EKG Interpretation by Me EKG shows normal: Sinus rhythm When compared to previous EKG there are: No significant change Additional EKG results interpreted by me: 11/06/19 17:04 Reviewed patient's EKG from the office earlier today which did demonstrate T wave inversion in leads V1 through 5. Consulted with patient's pharmacy assistant who reviewed her EKG performed today and reviewed it in comparison to EKG performed in August and states that there is no significant change. Discharge - Discharge Clinical Impression: Pleural effusion, Lightheadedness, Chest discomfort Condition: Stable Disposition: HOME, SELF-CARE Instructions: Chest Pain of Unclear Cause ([facility]), Pleural Effusion ([facility]) Additional Instructions: Return immediately for any new or worsening symptoms: Chest pain, shortness of breath, worsening or new concerning symptoms Followup with your primary care provider, call tomorrow to make a followup appointment Dr. Weaver would like to have a stress test performed after the lung issue has been further evaluated per your primary doctor. If you use the nitroglycerin tablets for any chest discomfort symptoms if you have to use 2 tablets you should be calling EMS and presented to the emergency department for further evaluation. Prescriptions: Nitroglycerin 0.4 mg SL ASDIR PRN #25 tab.subl PRN Reason: Benzonatate [Tessalon Perles 100 mg Capsule] 100 mg PO ASDIR PRN #30 capsule PRN Reason: Forms: Return to Work Referrals: WADE GUERRA MD [Primary Care Provider] - Follow up tomorrow SHERMAN WEAVER MD [EMERITUS] - Follow up in 3-5 days
[2019-11-06 17:48] VITALS: BP 109/55
--- NOTE | 2019-11-06 18:37 | EKG REPORT ---
SEVERITY:- ABNORMAL ECG - SINUS RHYTHM NONSPECIFIC T ABNORMALITIES, ANTERIOR LEADS : Confirmed by: Tamia Perez MD 06-Nov-2019 18:36:28
== END 2019-11-06 17:38 | disposition home or self-care (01) ==
LOC: ER 11:42
DX: J90 Pleural effusion, not elsewhere classified (principal); R42 Dizziness and giddiness; R07.89 Other chest pain; R53.1 Weakness; R68.84 Jaw pain; R53.83 Other fatigue; R06.02 Shortness of breath; I10 Essential (primary) hypertension
CPT/HCPCS: 36415; 71046; 80053; 82550; 82553; 84484; 85025; 93005; 93010; 99285

== ENCOUNTER → 2019-11-16 | Outpatient (CLI) | payer OTHER ==
[2019-11-16 10:29] LABS: ALBUMIN 3.7 g/dL (3.5-5.0); ALKALINE PHOSPHATASE 47 U/L (38-126); ANION GAP 5 (5-19); ASPARTATE AMINO TRANSFERASE 15 U/L (14-36); BILIRUBIN,TOTAL 0.5 mg/dL (0.2-1.3); BLOOD UREA NITROGEN 19 mg/dL (7-20); CALCIUM 8.7 mg/dL (8.4-10.2); CARBON DIOXIDE 29 mmol/L (22-30); CHLORIDE 106 mmol/L (98-107); GLUCOSE 89 mg/dL (75-110); TOTAL PROTEIN 6.2 g/dL (6.3-8.2)
== END ==
LOC: OD 09:20
PROVIDERS: ATTEND Internal Medicine Cardiovascular Disease
DX: I48.0 Paroxysmal atrial fibrillation (principal); Z79.899 Other long term (current) drug therapy
CPT/HCPCS: 36415; 80048; 80076; 83735; 84443

== ENCOUNTER → 2020-02-01 | Outpatient (CLI) | payer OTHER ==
[2020-02-01 10:55] LABS: ALBUMIN 3.8 g/dL (3.5-5.0); ALKALINE PHOSPHATASE 44 U/L (38-126); ANION GAP 6 (5-19); ASPARTATE AMINO TRANSFERASE 15 U/L (14-36); BILIRUBIN,TOTAL 0.6 mg/dL (0.2-1.3); BLOOD UREA NITROGEN 21 mg/dL (7-20); CARBON DIOXIDE 29 mmol/L (22-30); CHLORIDE 103 mmol/L (98-107); GLUCOSE 91 mg/dL (75-110); POTASSIUM 3.9 mmol/L (3.6-5.0); TOTAL PROTEIN 6.5 g/dL (6.3-8.2)
== END ==
LOC: OD 09:58
PROVIDERS: ATTEND Internal Medicine Cardiovascular Disease
DX: I48.0 Paroxysmal atrial fibrillation (principal); Z79.899 Other long term (current) drug therapy
CPT/HCPCS: 36415; 80048; 80076; 83735; 84443

== ENCOUNTER → 2020-05-09 | Outpatient (CLI) | payer OTHER ==
[2020-05-09 11:29] LABS: ALBUMIN 3.9 g/dL (3.5-5.0); ALKALINE PHOSPHATASE 48 U/L (38-126); ANION GAP 5 (5-19); ASPARTATE AMINO TRANSFERASE 19 U/L (14-36); BILIRUBIN,TOTAL 0.6 mg/dL (0.2-1.3); BLOOD UREA NITROGEN 22 mg/dL (7-20); CALCIUM 9.1 mg/dL (8.4-10.2); CARBON DIOXIDE 28 mmol/L (22-30); CHLORIDE 102 mmol/L (98-107); GLUCOSE 93 mg/dL (75-110); POTASSIUM 4.4 mmol/L (3.6-5.0); TOTAL PROTEIN 6.7 g/dL (6.3-8.2)
== END ==
LOC: OD 09:56
PROVIDERS: ATTEND Internal Medicine Cardiovascular Disease
DX: E55.9 Vitamin D deficiency, unspecified (principal); I48.0 Paroxysmal atrial fibrillation; Z79.899 Other long term (current) drug therapy
CPT/HCPCS: 36415; 80048; 80076; 82306; 83735; 84443

== ENCOUNTER 2020-05-11 03:02 | Emergency (ER) | payer OTHER ==
--- NOTE | 2020-05-11 03:54 | ER Document Report ---
Entered by GIANNI POZO SCRIBE 05/11/20 0322 Acting as scribe for:ELVIA PARKER IV, MD ED Cardiac - General Chief Complaint: Chest Pain Stated Complaint: CHEST PAIN Time Seen by Provider: 05/11/20 03:08 Primary Care Provider: SHERMAN WEAVER MD [EMERITUS] - Follow up as needed Mode of Arrival: Medic Information source: Patient Notes: This 55 year old female patient with a history of HTN, A fib with RVR, and CHF brought in by EMS presents to the ED today with complaints of left-sided chest pain that started prior to arrival. Patient states that she woke up nauseated around 0200 and felt the sudden onset of chest pain that radiated to her left arm/shoulder and up to her jaw. She reports that her heart rate was 154 bpm and her blood pressure was 190/103 so she called 911. She took 324 mg Aspirin and x1 SL NTG prior to EMS arrival with mild relief. She is now complaining of a headache from the NTG. Denies any other complaints. 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 TRAVEL OUTSIDE OF THE [place] IN LAST 30 DAYS: No - Related Data Allergies/Adverse Reactions: Sulfa (Sulfonamide Antibiotics) Allergy (Verified 09/01/15 10:51) Past Medical History - General Information source: Patient, [facility] Records - Social History Smoking Status: Unknown if Ever Smoked Smoking Education Provided: No Family History: Reviewed & Not Pertinent, CAD Patient has suicidal ideation: No Patient has homicidal ideation: No - Past Medical History Cardiac Medical History: Reports: Hx Atrial Fibrillation, Hx Hypertension Pulmonary Medical History: Reports: Hx Bronchitis Neurological Medical History: Reports: Hx Migraine - Ocular Psychiatric Medical History: Reports: Hx Anxiety, Hx Depression Past Surgical History: Reports: Hx Cholecystectomy, Hx Hysterectomy, Hx Orthopedic Surgery - back , wrist Review of Systems - Review of Systems Constitutional: No symptoms reported EENT: No symptoms reported Cardiovascular: See HPI, Chest pain, Heart racing Respiratory: No symptoms reported Gastrointestinal: See HPI, Nausea Genitourinary: No symptoms reported Female Genitourinary: No symptoms reported Musculoskeletal: See HPI, Joint pain, Muscle pain Skin: No symptoms reported Hematologic/Lymphatic: No symptoms reported Neurological/Psychological: See HPI, Headaches -: Yes All other systems reviewed and negative Physical Exam - Vital signs Vitals: Resp 17 05/11/20 03:03 - General General appearance: Appears well, Alert In distress: None - HEENT Head: Normocephalic, Atraumatic Eyes: Normal Pupils: PERRL - Respiratory Respiratory status: No respiratory distress Chest status: Nontender Breath sounds: Normal Chest palpation: Normal - Cardiovascular Rhythm: Regular Heart sounds: Normal auscultation Murmur: No Friction rub: No Gallop: None auscultated - Abdominal Inspection: Normal Distension: No distension Bowel sounds: Normal Tenderness: Nontender - Abdomen soft Organomegaly: No organomegaly - Back Back: Normal, Nontender - Extremities General upper extremity: Normal inspection General lower extremity: Normal inspection - Neurological Neuro grossly intact: Yes Orientation: AAOx4 Yaya Coma Scale Eye Opening: Spontaneous Yaya Coma Scale Verbal: Oriented Yaya Coma Scale Motor: Obeys Commands Yaya Coma Scale Total: 15 - Psychological Associated symptoms: Tearful - Skin Skin Temperature: Warm Skin Moisture: Dry Skin Color: Normal Course - Re-evaluation Re-evalutation: 05/11/20 06:29 Patient is lying in bed and is in no acute distress. Patient denies chest pain. Patient remains in a normal sinus rhythm. Results of ED MSE discussed with patient. All questions were answered prior to discharge. Emergency signs and symptoms, reasons to return to the emergency department discussed with patient. - Vital Signs Vital signs: Temp Pulse Resp BP Pulse Ox 98.1 F 11 L 143/93 H 97 05/11/20 03:25 05/11/20 05:01 05/11/20 05:01 05/11/20 05:01 - Laboratory Result Diagrams: 05/11/20 03:17 05/11/20 03:17 Laboratory results interpreted by me: 05/11/20 05/11/20 03:17 03:17 RDW 14.3 H Sodium 136.3 L BUN 28 H - Diagnostic Test Radiology reviewed: Reports reviewed - EKG Interpretation by Me Additional EKG results interpreted by me: 05/11/20 06:30 EKG obtained on 05/11/2020 at 0335 hrs. was interpreted by this MD. Findings: Sinus bradycardia, rate 56, normal axis, P waves are present in proceed QRS complexes, QRS complexes appear narrow, there are no obvious patterns of ST segment elevation or depression seen to suggest acute myocardial ischemia or inf arction. Impression: Sinus bradycardia with nonspecific ST segments. Discharge - Discharge Clinical Impression: AF (paroxysmal atrial fibrillation) Condition: Stable Disposition: HOME, SELF-CARE Additional Instructions: Return to the Emergency Department without delay if any worse. HOME CARE INSTRUCTIONS & INFORMATION: Thank you for choosing us for your medical needs. We hope you're satisfied with the care you received. After you leave, you must properly care for your problem and, at the same time, observe its progress. Any condition can change. Some illnesses can change rapidly over hours or days. If your condition worsens, return to the Emergency Department or see your physician promptly. ABOUT YOUR X-RAYS AND EKG'S: If you had an EKG or X-rays taken, they have been read by the Emergency Physician. The X-rays and EKG's will also be read by a Radiologist or Forestry Pilot within 24 hours. If discrepancies are noted, you will be notified by telephone. Please be certain the ED has a correct telephone number & address where you can be reached. Also, realize that some fractures or abnormalities do not show up on initial X-rays. If your symptoms continue, see your physician. ABOUT YOUR LABORATORY TEST: If you had laboratory tests, the results have been reviewed by the Emergency Physician. Some test results (for example cultures) may not be available for several days. You will be contacted if any test result shows you need additional treatment. Please be certain the ED has a correct telephone number and address where you can be reached. ABOUT YOUR MEDICATIONS: You will receive instructions on how to take your m edicine on the prescription label you receive. Additional information may be provided by the Pharmacy. If you have questions afterwards, call the ED for clarification or further instructions. Some prescribed medications may cause drowsiness. Do not perform tasks such as driving a car or operating machinery without consulting your Pharmacist. If you feel you need a refill of pain medication, your condition will need re-evaluation. Please do not call for a refill of any medication. ABOUT YOUR SIGNATURE: Signature of this document acknowledges to followin. Understanding that you received emergency treatment and that you may be released before al medical problems are known or treated. Please be certain the ED has a correct phone number & address where you can be reached. 2. Acknowledgement that you will arrange for follow-up care as recommended. 3. Authorization for the Emergency Physician to provide information to your follow-up Physician in order to maximize your care. AT ANY TIME, IF YOUR SYMPTOMS CHANGE SIGNIFICANTLY OR WORSEN OR YOU DEVELOP NEW SYMPTOMS, RETURN TO THE EMERGENCY DEPARTMENT IMMEDIATELY FOR RE-EVALUATION. OUR GOAL IS TO PROVIDE EXCELLENT MEDICAL CARE! WE HOPE THAT WE HAVE MET YOUR EXPECTATIONS DURING YOUR EMERGENCY DEPARTMENT VISIT AND THAT YOU FEEL YOU HAVE RECEIVED EXCELLENT CARE! Atrial Fibrillation Atrial fibrillation is an abnormal heart rhythm, caused by irregular electrical circuits in the upper heart chamber. It can be caused by heart valve disease, hardening of the arteries, or metabolic problems such as thyroid disease, or may occur without a clear cause. Atrial fibrillation may occur only occasionally, or may be chronic. Atrial fibrillation often results in a very fast heart rate, with palpitations, lightheadedness, and shortness of breath. Treatment is to slow the abnormally fast rate, and to convert the rhythm back to normal, if possible. Many patients stay in atrial fibrillation for years without symptoms or complications. Your doctor will decide whether you can be converted back to a normal heart rhythm. Contact the doctor or emergency medical system at once if you develop chest pain, shortness of breath, or severe lightheadedness, or if you develop any disturbance of consciousness, problems with speech, or localized weakness. Referrals: SHERMAN WEAVER MD [EMERITUS] - 05/11/20 I personally performed the services described in the documentation, reviewed and edited the documentation which was dictated to the scribe in my presence, and it accurately records my words and actions.
--- NOTE | 2020-05-11 04:01 | RADIOLOGY REPORT (SQ) ---
EXAM DESCRIPTION: XR CHEST 1 VIEW COMPLETED DATE/TME: 05/11/2020 03:19 CLINICAL HISTORY: 55 years, Female, tachycardia COMPARISON: 05/11/2019 chest NUMBER OF VIEWS: 1 TECHNIQUE: Portable chest LIMITATIONS: None. FINDINGS: Heart size is normal. Lungs are clear. No pneumothorax. Mild elevation right hemidiaphragm IMPRESSION: No acute cardiopulmonary process copyright 2010 [employer]- All Rights Reserved
[2020-05-11 04:49] LABS: ABSOLUTE BASOPHILS # (AUTO) 0.1 10^3/uL (0.0-0.2); ABSOLUTE EOSINOPHILS # (AUTO) 0.4 10^3/uL (0.0-0.6); ABSOLUTE LYMPHOCYTES (AUTO) 2.4 10^3/uL (0.5-4.7); ABSOLUTE MONOCYTES (AUTO) 0.5 10^3/uL (0.1-1.4); ABSOLUTE NEUT (AUTO) 4.3 10^3/uL (1.7-8.2); ALBUMIN 3.8 g/dL (3.5-5.0); ALKALINE PHOSPHATASE 41 U/L (38-126); ANION GAP 6 (5-19); ASPARTATE AMINO TRANSFERASE 31 U/L (14-36); BASOPHILS % (AUTO) 1.2 % (0-2); BILIRUBIN,DIRECT 0.1 mg/dL (0.0-0.4); BILIRUBIN,TOTAL 0.7 mg/dL (0.2-1.3); BLOOD UREA NITROGEN 28 mg/dL (7-20); CALCIUM 8.7 mg/dL (8.4-10.2); CARBON DIOXIDE 27 mmol/L (22-30); CHLORIDE 103 mmol/L (98-107); EOSINOPHILS % (AUTO) 5.4 % (0-6); GLUCOSE 92 mg/dL (75-110); HEMATOCRIT 38.1 % (36.0-47.0); HEMOGLOBIN 13.2 g/dL (12.0-15.5); LYMPHOCYTES % (AUTO) 30.5 % (13-45); MEAN CORPUSCULAR HEMOGLOBIN 28.8 pg (27.0-33.4); MEAN CORPUSCULAR HGB CONC 34.6 g/dL (32.0-36.0); MEAN CORPUSCULAR VOLUME 83 fl (80-97); RED BLOOD COUNT 4.58 10^6/uL (3.72-5.28); RED CELL DISTRIBUTION WIDTH 14.3 % (11.5-14.0); SEGMENTED NEUTROPHILS % (AUTO) 55.9 % (42-78); TOTAL CELLS COUNTED % (AUTO) 100 %; TOTAL PROTEIN 6.8 g/dL (6.3-8.2); WHITE BLOOD COUNT 7.8 10^3/uL (4.0-10.5)
[2020-05-11 05:07] LABS: PLATELET COUNT 210 10^3/uL (150-450)
--- NOTE | 2020-05-11 06:37 | EKG REPORT ---
SEVERITY:- BORDERLINE ECG - SINUS RHYTHM BORDERLINE T ABNORMALITIES, ANTERIOR LEADS : Confirmed by: Jp Sky MD 11-May-2020 06:36:02
[2020-05-11 06:49] VITALS: BP 158/88
== END 2020-05-11 06:49 | disposition home or self-care (01) ==
LOC: ER 03:02
DX: I48.0 Paroxysmal atrial fibrillation (principal); R07.9 Chest pain, unspecified; R11.0 Nausea; M79.602 Pain in left arm; M25.512 Pain in left shoulder; R68.84 Jaw pain; R51 Headache; Z88.2 Allergy status to sulfonamides; I10 Essential (primary) hypertension; I50.9 Heart failure, unspecified; M79.10 Myalgia, unspecified site
CPT/HCPCS: 36415; 71045; 80053; 83735; 84484; 85025; 93005; 93010; 99285

== ENCOUNTER → 2020-05-23 | Outpatient (CLI) | payer OTHER ==
[2020-05-23 11:11] LABS: HEMATOCRIT 40.8 % (36.0-47.0); HEMOGLOBIN 13.7 g/dL (12.0-15.5); MEAN CORPUSCULAR HGB CONC 33.6 g/dL (32.0-36.0); MEAN CORPUSCULAR VOLUME 84 fl (80-97); PLATELET COUNT 221 10^3/uL (150-450); RED BLOOD COUNT 4.88 10^6/uL (3.72-5.28); RED CELL DISTRIBUTION WIDTH 14.1 % (11.5-14.0); WHITE BLOOD COUNT 4.4 10^3/uL (4.0-10.5)
[2020-05-23 11:35] LABS: ANION GAP 9 (5-19); BLOOD UREA NITROGEN 25 mg/dL (7-20); CALCIUM 9.1 mg/dL (8.4-10.2); CARBON DIOXIDE 27 mmol/L (22-30); CHLORIDE 102 mmol/L (98-107); GLUCOSE 99 mg/dL (75-110); INTERNATIONAL RATION (INR) 0.99; POTASSIUM 4.2 mmol/L (3.6-5.0); PROTHROMBIN TIME 13.3 SEC (11.4-15.4)
[2020-05-23 11:36] LABS: PARTIAL THROMBOPLASTIN TIME 32.4 SEC (23.5-35.8)
== END ==
LOC: OD 10:48
PROVIDERS: ATTEND Physician Assistant
DX: Z01.810 Encounter for preprocedural cardiovascular examination (principal); R07.9 Chest pain, unspecified; R07.89 Other chest pain; Z79.01 Long term (current) use of anticoagulants
CPT/HCPCS: 36415; 80048; 85027; 85610; 85730

== ENCOUNTER → 2020-08-01 | Outpatient (CLI) | payer OTHER ==
[2020-08-01 12:21] LABS: ALBUMIN 3.8 g/dL (3.5-5.0); ALKALINE PHOSPHATASE 47 U/L (38-126); ANION GAP 11 (5-19); ASPARTATE AMINO TRANSFERASE 16 U/L (14-36); BILIRUBIN,DIRECT 0.1 mg/dL (0.0-0.4); BILIRUBIN,TOTAL 0.6 mg/dL (0.2-1.3); BLOOD UREA NITROGEN 21 mg/dL (7-20); CALCIUM 9.2 mg/dL (8.4-10.2); CARBON DIOXIDE 24 mmol/L (22-30); CHLORIDE 105 mmol/L (98-107); GLUCOSE 91 mg/dL (75-110); POTASSIUM 4.4 mmol/L (3.6-5.0); TOTAL PROTEIN 6.4 g/dL (6.3-8.2)
== END ==
LOC: OD 10:33
PROVIDERS: ATTEND Internal Medicine Cardiovascular Disease
DX: I48.0 Paroxysmal atrial fibrillation (principal); Z79.899 Other long term (current) drug therapy
CPT/HCPCS: 36415; 80048; 80076; 83735

== ENCOUNTER → 2020-08-05 | Outpatient (CLI) | payer OTHER | LOC: OD 14:35 | PROVIDERS: ATTEND Physician Assistant | DX: I48.0 Paroxysmal atrial fibrillation (principal); E83.42 Hypomagnesemia; Z79.899 Other long term (current) drug therapy ==

== ENCOUNTER → 2020-08-07 | Outpatient (CLI) | payer OTHER ==
--- NOTE | 2020-08-07 16:32 | WOMENS IMAGING REPORT ---
EXAM DESCRIPTION: BILAT SCREENING MAMMO W/CAD IMAGES COMPLETED DATE/TIME: 08/07/2020 9:31 am REASON FOR STUDY: Z12.31 ENCOUNTER FOR SCREENING MAMMOGRAM FOR MALIGNANT NEOPLASM OF BREAST Z12.31 ENCNTR SCREEN MAMMOGRAM FOR MALIGNANT NEOPLASM OF JUAN COMPARISON: 2016 and subsequent EXAM PARAMETERS: Standard craniocaudal and mediolateral oblique views of each breast recorded using digital acquisition. Read with the assistance of CAD. .[facility] - [employer] Specialist Version 9.2 LIMITATIONS: None. FINDINGS: No suspicious masses, suspicious calcifications or architectural distortion. No areas of c oncern. IMPRESSION: NEGATIVE MAMMOGRAM. BIRADS 1 BREAST DENSITY: b. There are scattered areas of fibroglandular density. BIRAD: ASSESSMENT: 1 Negative. RECOMMENDATION: RECOMMENDED FOLLOW-UP: Routine Screening. RECALL: 12 MONTHS COMMENT: The patient has been notified of the results by letter per SA requirements. Additional no tification policies are in place for contacting patient with suspicious or incomplete findings. Quality ID #225: The [employer] recommends an annual screening mammogram for women aged 40 years or over. This facility utilizes a reminder system to ensure that all patients receive reminder letters, and/or direct phone calls for appointments. This includes reminders for routine scr eening mammograms, diagnostic mammograms, or other Breast Imaging Interventions when appropriate. Th is patient will be placed in the appropriate reminder system. TECHNICAL DOCUMENTATION: FINDING NUMBER: (1) ASSESSMENT: (1) JOB ID: [id number] 2010 [employer]- All Rights Reserved Reading location - IP/workstation name: [email or web address]
== END ==
LOC: WI 08:33
PROVIDERS: ATTEND Physician Assistant Medical
DX: Z12.31 Encounter for screening mammogram for malignant neoplasm of breast (principal)
CPT/HCPCS: 77067

== ENCOUNTER → 2020-08-07 | Outpatient (CLI) | payer OTHER ==
--- NOTE | 2020-08-07 10:22 | RADIOLOGY REPORT (SQ) ---
EXAM DESCRIPTION: CHEST PA/LATERAL IMAGES COMPLETED DATE/TIME: 08/07/2020 10:05 am REASON FOR STUDY: PAROXYSMAL ATRIAL FIBRILLATION COMPARISON: 05/11/2020 EXAM PARAMETERS: NUMBER OF VIEWS: two views TECHNIQUE: Digital Frontal and Lateral radiographic views of the chest acquired. RADIATION DOSE: NA LIMITATIONS: none FINDINGS: LUNGS AND PLEURA: No opacities, masses or pneumothorax. No pleural effusion. MEDIASTINUM AND HILAR STRUCTURES: No masses or contour abnormalities. HEART AND VASCULAR STRUCTURES: Heart normal size. No evidence for failure. BONES: No acute findings. HARDWARE: None in the chest. OTHER: No other significant finding. IMPRESSION: NO SIGNIFICANT RADIOGRAPHIC FINDING IN THE CHEST. TECHNICAL DOCUMENTATION: JOB ID: [id number] 2010 [employer]- All Rights Reserved Reading location - IP/workstation name: [email or web address]
[2020-08-07 10:31] LABS: HEMATOCRIT 40.2 % (36.0-47.0); HEMOGLOBIN 13.8 g/dL (12.0-15.5); MEAN CORPUSCULAR HEMOGLOBIN 28.5 pg (27.0-33.4); MEAN CORPUSCULAR HGB CONC 34.4 g/dL (32.0-36.0); MEAN CORPUSCULAR VOLUME 83 fl (80-97); PLATELET COUNT 193 10^3/uL (150-450); RED BLOOD COUNT 4.86 10^6/uL (3.72-5.28); RED CELL DISTRIBUTION WIDTH 14.8 % (11.5-14.0); WHITE BLOOD COUNT 4.3 10^3/uL (4.0-10.5)
[2020-08-07 10:32] LABS: APPEARANCE,URINE SLIGHTLY-CLOUDY; BILIRUBIN,URINE NEGATIVE (NEGATIVE); COLOR,URINE YELLOW; GLUCOSE, URINE NEGATIVE (NEGATIVE); KETONES,URINE NEGATIVE (NEGATIVE); LEUKOCYTE ESTERASE,URINE NEGATIVE (NEGATIVE); NITRITE,URINE NEGATIVE (NEGATIVE); PROTEIN,URINE NEGATIVE (NEGATIVE); URINE SPECIFIC GRAVITY 1.021; UROBILINOGEN,URINE NEGATIVE mg/dL (<2.0)
[2020-08-07 11:11] LABS: ALKALINE PHOSPHATASE 54 U/L (38-126); ANION GAP 11 (5-19); ASPARTATE AMINO TRANSFERASE 17 U/L (14-36); BILIRUBIN,TOTAL 0.6 mg/dL (0.2-1.3); BLOOD UREA NITROGEN 24 mg/dL (7-20); CALCIUM 9.5 mg/dL (8.4-10.2); CARBON DIOXIDE 26 mmol/L (22-30); CHLORIDE 103 mmol/L (98-107); CHOLESTEROL 288.02 mg/dL (0-200); GLUCOSE 92 mg/dL (75-110); POTASSIUM 3.9 mmol/L (3.6-5.0); TOTAL PROTEIN 6.8 g/dL (6.3-8.2); TRIGLYCERIDES 83 mg/dL (<150)
[2020-08-07 11:21] LABS: DIRECT LDL 204 mg/dL (<100)
[2020-08-08 07:20] LABS: INSULIN 13.4 uIU/mL (2.6-24.9)
== END ==
LOC: OD 09:17
PROVIDERS: ATTEND Internal Medicine Cardiovascular Disease
DX: I48.0 Paroxysmal atrial fibrillation (principal); E66.09 Other obesity due to excess calories; E55.9 Vitamin D deficiency, unspecified; E78.2 Mixed hyperlipidemia; Z79.01 Long term (current) use of anticoagulants; Z79.899 Other long term (current) drug therapy
CPT/HCPCS: 36415; 71046; 80048; 80061; 80076; 81001; 82306; 82542; 83036; 83525; 83735; 84443; 85027

== ENCOUNTER → 2020-10-31 | Outpatient (CLI) | payer OTHER ==
[2020-10-31 12:56] LABS: HEMATOCRIT 40.5 % (36.0-47.0); HEMOGLOBIN 13.7 g/dL (12.0-15.5); MEAN CORPUSCULAR HEMOGLOBIN 28.3 pg (27.0-33.4); MEAN CORPUSCULAR HGB CONC 33.7 g/dL (32.0-36.0); MEAN CORPUSCULAR VOLUME 84 fl (80-97); PLATELET COUNT 216 10^3/uL (150-450); RED BLOOD COUNT 4.82 10^6/uL (3.72-5.28); WHITE BLOOD COUNT 4.9 10^3/uL (4.0-10.5)
[2020-10-31 13:02] LABS: APPEARANCE,URINE SLIGHTLY-CLOUDY; BILIRUBIN,URINE NEGATIVE (NEGATIVE); COLOR,URINE YELLOW; GLUCOSE, URINE NEGATIVE (NEGATIVE); KETONES,URINE NEGATIVE (NEGATIVE); LEUKOCYTE ESTERASE,URINE TRACE (NEGATIVE); NITRITE,URINE NEGATIVE (NEGATIVE); PROTEIN,URINE NEGATIVE (NEGATIVE); URINE SPECIFIC GRAVITY 1.021; UROBILINOGEN,URINE NEGATIVE mg/dL (<2.0)
[2020-10-31 13:35] LABS: ALBUMIN 3.8 g/dL (3.5-5.0); ALKALINE PHOSPHATASE 46 U/L (38-126); ANION GAP 5 (5-19); ASPARTATE AMINO TRANSFERASE 17 U/L (14-36); BILIRUBIN,DIRECT 0.3 mg/dL (0.0-0.4); BILIRUBIN,TOTAL 0.7 mg/dL (0.2-1.3); BLOOD UREA NITROGEN 22 mg/dL (7-20); CARBON DIOXIDE 30 mmol/L (22-30); CHLORIDE 101 mmol/L (98-107); GLUCOSE 81 mg/dL (75-110); POTASSIUM 4.2 mmol/L (3.6-5.0); TOTAL PROTEIN 6.5 g/dL (6.3-8.2)
[2020-11-01 19:16] LABS: TRIGLYCERIDES 81 mg/dL (<150)
[2020-11-01 19:27] LABS: DIRECT LDL 202 mg/dL (<100)
== END ==
LOC: OD 10:58
PROVIDERS: ATTEND Internal Medicine Cardiovascular Disease
DX: I50.22 Chronic systolic (congestive) heart failure (principal); E78.2 Mixed hyperlipidemia; I48.0 Paroxysmal atrial fibrillation; E83.42 Hypomagnesemia; Z79.01 Long term (current) use of anticoagulants; Z79.899 Other long term (current) drug therapy
CPT/HCPCS: 36415; 80048; 80061; 80076; 81001; 82272; 83735; 83880; 84443; 85027